=== PATIENT | male | born 1940 | race Caucasian/White ===

== ENCOUNTER → 2016-11-23 | Outpatient (CLI) | payer MEDICARE, MEDICAID ==
[2016-11-23 09:53] LABS: MEAN CORPUSCULAR HEMOGLOBIN 31.8 pg (27.0-33.0); MEAN CORPUSCULAR HGB CONC 36.1 g/dl (32.0-36.5); RED CELL DISTRIBUTION WIDTH 18.1 % (11.5-14.5); WHITE BLOOD COUNT 7.4 K/mm3 (4.0-10.0)
[2016-11-23 10:24] LABS: ALBUMIN 4.1 GM/DL (3.2-5.2); ALBUMIN/GLOBULIN RATIO 1.86 (1.00-1.93); BILIRUBIN,TOTAL 2.3 MG/DL (0.2-1.0); CALCIUM LEVEL 8.8 MG/DL (8.8-10.2); CREATININE FOR GFR 1.3 MG/DL (0.70-1.30); GLOMERULAR FILTRATION RATE 57.1 (>42); POTASSIUM SERUM 4.1 MEQ/L (3.5-5.1); TOTAL PROTEIN 6.3 GM/DL (6.4-8.2)
== END ==
LOC: M LAB 09:10
PROVIDERS: ATTEND Emergency Medicine
DX: E11.9 Type 2 diabetes mellitus without complications (principal)

== ENCOUNTER → 2017-09-25 | Outpatient (CLI) | payer MEDICARE, MEDICAID ==
[2017-09-25 08:25] LABS: BASO % 0.6 % (0.0-1.0); EOS # 0.5 10^3/uL (0.0-0.50); EOS % 7.4 % (0.0-3.0); HEMATOCRIT 35.1 % (42.0-52.0); HEMOGLOBIN 11.8 g/dl (13.5-17.5); IMMATURE GRANULOCYTE % 0.7 % (0-3.0); LYMPH # 1.4 10^3/uL (1.5-4.5); LYMPH % 20.6 % (24.0-44.0); MEAN CORPUSCULAR HEMOGLOBIN 30.5 pg (27.0-33.0); MEAN CORPUSCULAR HGB CONC 33.6 g/dl (32.0-36.5); MEAN CORPUSCULAR VOLUME 90.7 fl (80.0-96.0); MONO # 0.5 10^3/uL (0.0-0.8); MONO % 6.9 % (0.0-5.0); NEUTROPHILS # 4.5 10^3/uL (1.8-7.7); NEUTROPHILS % 63.8 % (36.0-66.0); PLATELET COUNT, AUTOMATED 101 10^3/uL (150-450); RED BLOOD COUNT 3.87 10^6/uL (4.30-6.10); RED CELL DISTRIBUTION WIDTH 16.6 % (11.5-14.5)
[2017-09-25 08:53] LABS: ALBUMIN 4.1 GM/DL (3.2-5.2); ALBUMIN/GLOBULIN RATIO 1.86 (1.00-1.93); ALKALINE PHOSPHATASE 49 U/L (45-117); ALT/SGPT 31 U/L (12-78); ANION GAP 6 MEQ/L (8-16); AST/SGOT 24 U/L (7-37); BILIRUBIN,TOTAL 2.4 MG/DL (0.2-1.0); BLOOD UREA NITROGEN 21 MG/DL (7-18); CALCIUM LEVEL 8.9 MG/DL (8.8-10.2); CARBON DIOXIDE LEVEL 29 MEQ/L (21-32); CHLORIDE LEVEL 108 MEQ/L (98-107); CHOLESTEROL LEVEL 109 MG/DL (<200); CHOLESTEROL RISK RATIO 3.516 (<5); CREATININE FOR GFR 1.27 MG/DL (0.70-1.30); GLOMERULAR FILTRATION RATE 58.7 (>42); GLUCOSE, FASTING 188 MG/DL (70-100); HDL CHOLESTEROL 31 MG/DL (>40); LDL CHOLESTEROL 39.6 MG/DL (<100); NON-HDL-C 78 MG/DL; POTASSIUM SERUM 4.3 MEQ/L (3.5-5.1); SODIUM LEVEL 143 MEQ/L (136-145); TOTAL PROTEIN 6.3 GM/DL (6.4-8.2); TRIGLYCERIDES LEVEL 192 MG/DL (<150)
[2017-09-25 09:03] LABS: MAU/CREAT RATIO 58.3 MCG/MG (0.0-30.0)
[2017-09-25 09:10] LABS: ESTIMATED AVERAGE GLUCOSE 62 MG/DL (60-110); HEMOGLOBIN A1c 3.8 %
== END ==
LOC: M LAB 07:41
DX: E11.9 Type 2 diabetes mellitus without complications (principal)
CPT/HCPCS: 80053

== ENCOUNTER → 2018-09-12 | Outpatient (CLI) | payer MEDICARE, MEDICAID ==
[2018-09-12 10:42] LABS: BASO # 0.1 10^3/uL (0.0-0.2); BASO % 0.8 % (0.0-1.0); EOS # 0.2 10^3/uL (0.0-0.50); EOS % 1.9 % (0.0-3.0); HEMATOCRIT 33.7 % (42.0-52.0); HEMOGLOBIN 11.6 g/dl (13.5-17.5); LYMPH # 1.4 10^3/uL (1.5-4.5); LYMPH % 13.8 % (24.0-44.0); MEAN CORPUSCULAR HEMOGLOBIN 30.2 pg (27.0-33.0); MEAN CORPUSCULAR HGB CONC 34.4 g/dl (32.0-36.5); MEAN CORPUSCULAR VOLUME 87.8 fl (80.0-96.0); MONO # 0.5 10^3/uL (0.0-0.8); MONO % 5.1 % (0.0-5.0); NEUTROPHILS % 76.9 % (36.0-66.0); PLATELET COUNT, AUTOMATED 139 10^3/uL (150-450); RED BLOOD COUNT 3.84 10^6/uL (4.30-6.10); WHITE BLOOD COUNT 10.3 10^3/uL (4.0-10.0)
[2018-09-12 10:58] LABS: HEMOGLOBIN A1c 6.1 %
[2018-09-12 11:21] LABS: ALBUMIN 4.5 GM/DL (3.2-5.2); BILIRUBIN,TOTAL 3.5 MG/DL (0.2-1.0); CALCIUM LEVEL 8.9 MG/DL (8.8-10.2); CHOLESTEROL RISK RATIO 2.605 (<5); CREATININE FOR GFR 1.32 MG/DL (0.70-1.30); FREE T4 1.13 NG/DL (0.76-1.46); POTASSIUM SERUM 4.2 MEQ/L (3.5-5.1); PROSTATIC SPECIFIC AG MONITOR 0.27 NG/ML (< 4.00); THYROID STIMULATING HORMONE 1.25 uIU/ML (0.358-3.740); TOTAL PROTEIN 6.1 GM/DL (6.4-8.2)
[2018-09-12 11:22] LABS: TOTAL 25(OH) VITAMIN D 46.2 NG/ML (30.0-100.0)
== END ==
LOC: M LAB 09:53
PROVIDERS: ATTEND Physician Assistant Medical
DX: R53.83 Other fatigue (principal); I10 Essential (primary) hypertension; E78.2 Mixed hyperlipidemia; E55.9 Vitamin D deficiency, unspecified; E11.9 Type 2 diabetes mellitus without complications

== ENCOUNTER 2018-10-11 09:03 | Emergency (ER) | payer MEDICARE, MEDICAID ==
[~2018-10-11] VITALS: Ht 170.2 cm; Wt 69.1 kg
[2018-10-11 09:24] VITALS: BP 189/79
[2018-10-11] MEDS ORDERED: [UNRECOGNIZED DRUG - CODE] PO (09:46)
[2018-10-11] MEDS ORDERED: GLIM1TAB PO (09:46)
[2018-10-11] MEDS ORDERED: OMEP-218 PO (09:46)
[2018-10-11] MEDS ORDERED: MUCI600T31 PO (09:49)
[2018-10-11] MEDS ORDERED: AUGM875T28 PO (09:49)
[2018-10-11] MEDS ORDERED: AUGMENTIN 875 MG TAB PO ONE (10:00)
== END 2018-10-11 10:03 | disposition home or self-care (01) ==
LOC: M ED 09:03
DX: J01.90 Acute sinusitis, unspecified (principal); H57.13 Ocular pain, bilateral; Z79.899 Other long term (current) drug therapy; Z79.82 Long term (current) use of aspirin

== ENCOUNTER 2018-10-15 12:58 | Inpatient (IN) | payer MEDICARE, MEDICAID ==
[~2018-10-15] VITALS: Ht 170.2 cm; Wt 69.1 kg
[~2018-10-15 12:58] MED LIST: AUGM875T28 PO; GLIM1TAB PO; MUCI600T31 PO; OMEP-218 PO; [UNRECOGNIZED DRUG - CODE] PO
[2018-10-15 14:57] LABS: HEMATOCRIT 32.9 % (42.0-52.0); HEMOGLOBIN 11.1 g/dl (13.5-17.5); MEAN CORPUSCULAR HEMOGLOBIN 29.2 pg (27.0-33.0); MEAN CORPUSCULAR HGB CONC 33.7 g/dl (32.0-36.5); MEAN CORPUSCULAR VOLUME 86.6 fl (80.0-96.0); PLATELET COUNT, AUTOMATED 220 10^3/uL (150-450); WHITE BLOOD COUNT 16.1 10^3/uL (4.0-10.0)
[2018-10-15 15:08] LABS: AMPHETAMINES LEVEL URINE NEGATIVE (NEGATIVE); BARBITURATES URINE NEGATIVE (NEGATIVE); BENZODIAZEPINES URINE NEGATIVE (NEGATIVE); CANNABINOIDS URINE NEGATIVE (NEGATIVE); COCAINE METABOLITE URINE NEGATIVE (NEGATIVE); METHADONE URINE NEGATIVE (NEGATIVE); OPIATES URINE NEGATIVE (NEGATIVE); PHENCYCLIDINE URINE NEGATIVE (NEGATIVE)
[2018-10-15 15:37] LABS: ACETAMINOPHEN LEVEL < 2.0 UG/ML (10.0-30.0); ALBUMIN 3.8 GM/DL (3.2-5.2); ALT/SGPT 47 U/L (12-78); BILIRUBIN,DIRECT 0.7 MG/DL (0.0-0.2); BILIRUBIN,TOTAL 2.4 MG/DL (0.2-1.0); BLOOD UREA NITROGEN 30 MG/DL (7-18); CALCIUM LEVEL 8.6 MG/DL (8.8-10.2); CARBON DIOXIDE LEVEL 28 MEQ/L (21-32); CHLORIDE LEVEL 98 MEQ/L (98-107); CREATININE FOR GFR 1.16 MG/DL (0.70-1.30); ETHYL ALCOHOL (ETHANOL) < 0.003 % (0.000-0.010); GLOMERULAR FILTRATION RATE > 60.0 (>42); GLUCOSE, FASTING 436 MG/DL (70-100); POTASSIUM SERUM 4.2 MEQ/L (3.5-5.1); SALICYLATE LEVEL < 1.7 MG/DL (5.0-30.0); SODIUM LEVEL 134 MEQ/L (136-145); THYROID STIMULATING HORMONE 0.961 uIU/ML (0.358-3.740); TOTAL PROTEIN 6.7 GM/DL (6.4-8.2)
[2018-10-15] MEDS ORDERED: NS 1,000 ML IV ONE ×2 (16:00→18:45)
[2018-10-15] MEDS ORDERED: HumuLIN R (REGULAR) INSULIN (NovoLIN R) **100U/ML** PER UNIT IV ONE (17:15)
[2018-10-15 18:19] LABS: HEMOGLOBIN A1c 7.2 %
--- NOTE | 2018-10-15 20:12 | ECGEPIP ---
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
--- NOTE | 2018-10-15 20:21 | REP ---
PORTABLE CHEST: AP portable view of the chest is performed. COMPARISON: 06/17/2012 There is mild linear fibroatelectatic change in the right lung base. No acute infiltrate is seen. Heart is normal in size and there is mild calcification of the thoracic aorta. The mediastinal silhouette is unremarkable. IMPRESSION: Mild fibroatelectatic change right lung base without evidence of acute infiltrate. Electronically Signed by Godfrey Rice MD 10/20/2018 01:38 P
[2018-10-15] MEDS ORDERED: HumuLIN R (REGULAR) INSULIN (NovoLIN R) **100U/ML** PER UNIT SC ONE (20:30)
[2018-10-16] MEDS ORDERED: GLIMEPIRIDE 1 MG TABLET PO SCH (07:30)
[2018-10-16] MEDS ORDERED: AUGMENTIN 875 MG TAB PO SCH (09:00)
[2018-10-16] MEDS ORDERED: MOM 30ML SUSPENSION UDC PO PRN ×2 (14:15→15:45)
[2018-10-16] MEDS ORDERED: ACETAMINOPHEN TAB 650MG DOSE (2X325MG) PO PRN ×2 (14:15→15:45)
[2018-10-16] MEDS ORDERED: MAALOX 30 ML SUSP *UDC PO PRN ×2 (14:15→15:45)
[2018-10-16] MEDS ORDERED: traZODone 50 MG TAB PO PRN ×2 (14:15→15:45)
[2018-10-16] MEDS ORDERED: AMOX875T2 PO (14:31)
[2018-10-16] MEDS ORDERED: MUCI600T31 PO (14:31)
[2018-10-16 15:44] VITALS: BP 138/67
[2018-10-16 17:26] LABS: HEMATOCRIT 34.1 % (42.0-52.0); HEMOGLOBIN 11.3 g/dl (13.5-17.5); MEAN CORPUSCULAR HGB CONC 33.1 g/dl (32.0-36.5); MEAN CORPUSCULAR VOLUME 87.4 fl (80.0-96.0); PLATELET COUNT, AUTOMATED 265 10^3/uL (150-450); WHITE BLOOD COUNT 19.2 10^3/uL (4.0-10.0)
[2018-10-16 17:38] LABS: CALCIUM LEVEL 8.3 MG/DL (8.8-10.2); CREATININE FOR GFR 1.37 MG/DL (0.70-1.30); GLOMERULAR FILTRATION RATE 53.5 (>42); POTASSIUM SERUM 4.7 MEQ/L (3.5-5.1)
[2018-10-16] MEDS ORDERED: GLUCAGON FOR INJ 1 MG VIAL (J1610) SC PRN (19:15)
[2018-10-16] MEDS ORDERED: DEXTROSE 50% 50 ML SYRINGE IV PRN (19:15)
[2018-10-16] MEDS ORDERED: GLUCOSE 4 GM CHEW TABLET PO PRN (19:15)
--- NOTE | 2018-10-16 20:00 | REP ---
HISTORY: Abdominal pain. Accompanying frontal view of the chest is compared to previous exam of 06/17/2012. The frontal view of the chest shows an abnormal patchy opacity in the right lower lobe. The pleural angles are sharp and the heart is not enlarged. The osseous structures are within normal limits. There is no abnormal free subdiaphragmatic air. There is a large amount of contents seen throughout the colon. This obscures the organ silhouettes. Chronic changes seen involving the hips and spine. IMPRESSION: 1. Right lower lobe pneumonia. 2. Large amount of contents seen throughout the colon. Correlate clinically for constipation. Electronically Signed by Lew Powell DO 10/17/2018 04:42 P
[2018-10-16] MEDS ORDERED: HumaLOG INSULIN (NovoLOG) PER UNIT SC SCH (21:00)
[2018-10-16] MEDS ORDERED: DOCUSATE SODIUM 100 MG CAP PO SCH (21:00)
[2018-10-17] MEDS ORDERED: GLIMEPIRIDE 1 MG TABLET PO SCH (07:30)
[2018-10-17] MEDS ORDERED: HumaLOG INSULIN (NovoLOG) PER UNIT SC SCH (07:30)
--- NOTE | 2018-10-17 08:28 | CR.PDOC ---
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 Patient states today, neighbor (Alka) knocked on door, he answered it, went into the kitchen for "something" and suddenly lost vision. States he became distraught at the idea of never seeing again, groped around kitchen for a knife and attempted to stab himself in abdomen 3 times. He states "the knife just kept bouncing off my skin and wouldn't go in - then I thought angels were pulling my hands away and taking away knife - but later vision coming back and I saw it was Alka". He states his brother Yanick came by and told him he loved him and didn't want him to . Patient was brought to ED and found to have elevated WBC and blood sugars on 10/15/18. He was treated with insulin, IVF. He was seen October 11 for GARZON and sinusitis and placed on augmentin. He states over past week he has been dizzy and fell a few times hitting right elbow and shins but no LOC. ALLERGIES: Please see below. HOME MEDICATIONS: Please see below. PAST MEDICAL HISTORY: mild mental retardation CKD III Diabetes on oral medication GERD Prostate Cancer Depression/anxiety Deaf PAST SURGICAL HISTORY: Cholecystectomy Scar to right side of head - patient does not know of any surgery FAMILY HISTORY: patient doesn't know SOCIAL HISTORY: Lives alone, no tobacco, no EtOH; uses walker REVIEW OF SYSTEMS: 10 systems reviewed and negative except as listed below or in HPI: Dizziness, GARZON, no fever, no N, no V; fecal incontinence (constipation per patient), deaf, vision changes (lost vision, and now blurry), no CP, no dysuria or bladder incontinence; recent falls, myalgias/arthralgia at times PHYSICAL EXAMINATION: VITAL SIGNS: Please see below. GENERAL APPEARANCE: pleasant, NAD, AAOx3 HEENT: Deaf, RAYMOND/EOMI; oral mucosa moist, no JVD, no thyromegally, no bruit, no post nasal drip; Decreased peripheral vision left lateral eye, no nystagmus RESPIRATORY: LCTA no W/R/R, no CVA tenderness, no scoliosis CARDIOVASCULAR: HRRR no murmur ABDOMEN: soft, NT, LLQ mass; RUQ scar consistent with history EXTREMITIES: no edema, onchymycotic toe nails; DP Pulses intact NEUROLOGICAL: vision loss left peripheral, upper and lower motor/sensory strength intact PSYCHIATRIC: Defer to psych note SKIN: no rash, abrasion to right elbow and bilateral shins, no cellulitis LABORATORY DATA: Please see below. ASSESSMENT/PLAN: 1. vision changes - unclear if associated with DM, underlying vasculitis or other etiology; needs further evaluation including CT Head, carotids, etc 2. DM -poor control; on oral agents. start SSI , check HgA1c 3. CKD stage III - stable 4. Leukocytosis - worsening compared to 10/15/18. unclear etiology - doubt sinusitis. on augmentin. has fecal incontinence and if diarrhea stool with constipation, check for CDIF. blood cultures ordered 5. LLQ abdomen mass - suspect stool, but with history of prostate cancer (unknown treatment), will need further evaluation Discussed case with Dr Barroso and at this time, patient needs inpatient evaluation on medical floor in hospital. Will transfer to hospital, 1:1 sitter and further evalute problems above CODE STATUS: FULL DVT PROPHYLAXIS: lovenox DSS CORSET MAKER: Meenaharsha Montaño [phone] Vital Signs/I&O Vital Signs Date Time Temp Pulse Resp B/P (MAP) Pulse Ox O2 Delivery O2 Flow Rate FiO2 10/16/18 15:44 98.8 84 20 138/67 (90) 100 Room Air Laboratory Data Labs 24H Laboratory Tests 2 10/15/18 17:09: Urine Color YELLOW, Urine Appearance CLEAR, Urine pH 7.0, Urine Specific Drain 1.020, Urine Protein NEGATIVE, Urine Glucose (UA) 3+H, Urine Ketones NEGATIVE, Urine Blood NEGATIVE, Urine Nitrite NEGATIVE, Urine Bilirubin NEGATIVE, Urine Urobilinogen 0.2, Urine Leukocyte Esterase NEGATIVE, Urine WBC (Auto) 0, Urine RBC (Auto) 0, Urine Hyaline Casts (Auto) 0, Urine Bacteria (Auto) NEGATIVE, Urine Squamous Epithelial Cells 0, Urine Sperm (Auto) 10/15/18 17:39: Bedside Glucose (Misc Panel) 530*H 10/15/18 18:13: Bedside Glucose (Misc Panel) 390H 10/15/18 19:07: Bedside Glucose (Misc Panel) 487H 10/15/18 20:15: Bedside Glucose (Misc Panel) 536*H 10/15/18 21:35: Bedside Glucose (Misc Panel) 374H 10/15/18 22:31: Bedside Glucose (Misc Panel) 259H 10/16/18 03:13: Bedside Glucose (Misc Panel) 160H 10/16/18 06:02: Bedside Glucose (Misc Panel) 241H CBC/BMP Item Value Date Time White Blood Count 19.2 10^3/uL H 10/16/18 1701 White Blood Count 16.1 10^3/uL H 10/15/18 1438 Hemoglobin 11.3 g/dl L 10/16/18 1701 Hemoglobin 11.1 g/dl L 10/15/18 1438 Red Cell Distribution Width 20.1 % H 10/16/18 1701 Platelet Count 265 10^3/uL 10/16/18 1701 Platelet Count 220 10^3/uL 10/15/18 1438 Red Cell Distribution Width 20.1 % H 10/15/18 1438 Sodium Level 136 MEQ/L 10/16/18 1701 Sodium Level 134 MEQ/L L 10/15/18 1438 Potassium Level 4.7 MEQ/L 10/16/18 1701 Potassium Level 4.2 MEQ/L 10/15/18 1438 Blood Urea Nitrogen 27 MG/DL H 10/16/18 1701 Creatinine 1.37 MG/DL H 10/16/18 1701 Blood Urea Nitrogen 30 MG/DL H 10/15/18 1438 Creatinine 1.16 MG/DL 10/15/18 1438 Fasting Glucose 363 MG/DL H 10/16/18 1701 Fasting Glucose 436 MG/DL *H 10/15/18 1438 Estimated Mean Plasma Glucose 160 MG/DL H 10/15/18 1438 Calcium Level 8.6 MG/DL L 10/15/18 1438 Calcium Level 8.3 MG/DL L 10/16/18 1701 Total Bilirubin 2.4 MG/DL H 10/15/18 1438 Direct Bilirubin 0.7 MG/DL H 10/15/18 1438 Aspartate Amino Transf (AST/SGOT) 22 U/L 10/15/18 1438 Alanine Aminotransferase (ALT/SGPT) 47 U/L 10/15/18 1438 Albumin 3.8 GM/DL 10/15/18 1438 Thyroid Stimulating Hormone (TSH) 0.961 uIU/ML 10/15/18 1438 Hemoglobin A1c 7.2 % 10/15/18 1438 Allergies Coded Allergies: No Known Allergies (Unverified , 10/11/18) Home Medications Scheduled Amoxicillin/Potassium Clav (Amox-Clav 875-125 mg Tablet) 1 Each Tablet, 1 TAB PO BID, (Reported) FILLED 10/11/18 FOR 10 DAYS Aspirin (Aspirin EC) 81 Mg Tablet.dr, 81 MG PO DAILY, (Reported) Glimepiride (Glimepiride) 1 Mg Tablet, 1 MG PO DAILY, (Reported) Omeprazole (Omeprazole) 20 Mg Capsule.dr, 20 MG PO DAILY, (Reported) Scheduled PRN Guaifenesin (Mucinex) 600 Mg Tab.er.12h, 600 MG PO BID PRN for COUGH, (Reported) MITCHELL ARSHAD DO Oct 16, 2018 16:03
--- NOTE | 2018-10-17 10:06 | REP ---
CT Head without contrast HISTORY: Headache COMPARISON: 11/28/2015 The examination is available for review 09:45 a.m. 10/17/2018 Areas of decreased attenuation are present in the periventricular white matter. This represents small-vessel ischemic disease. There is no intraparenchymal hemorrhage, acute infarct or mass. The ventricular system and cortical sulci are dilated consistent with mild volume loss. A 6 mm chronic subdural fluid collection is present over the right cerebral hemisphere. A 5 mm chronic subdural fluid collection is present over the left cerebral hemisphere. There is no midline shift. There is no fracture. The visualized sinuses are clear. IMPRESSION: 1. Small vessel ischemic disease. 2. Mild volume loss. 3. There are small chronic subdural fluid collections measuring 6 and 5 mm over the right and left cerebral convexities respectively. There is no midline shift. Results were discussed with Dr. Aguilera at the 10:00 a.m. 10/17/2018 Electronically Signed by Omar Cam MD 10/17/2018 09:58 A
--- NOTE | 2018-11-11 14:11 | MHDS ---
DATE OF ADMISSION: 10/16/2018 DATE OF DISCHARGE: 10/16/2018 HISTORY OF PRESENT ILLNESS: The patient was admitted to the psychiatric unit on 10/16/2018 at 2:00 p.m. in the afternoon. I never saw the patient, however the patient developed medical complications once he was in the unit and so he had a consult done and the provider contracting consultant felt that the patient needed to be immediately transferred to the medical floor and he was discharged from the unit at 1843 hours. In reviewing the patient's emergency room information, it states that he was brought in by the police following the report of the patient having written a suicidal note and that the patient had stabbed himself in the stomach and in the neck. The patient indicated that he has difficulty seeing and walking and swallowing and he does not want to live anymore. In the emergency room, he was denying any suicidal or homicidal ideations, and there were some will in the abdomen and neck where the patient said he poked himself with a knife. He told them that he tried to kill himself, but it did not work. He indicated that he had medical problems due to his diabetes, which was causing problems with his vision. He also indicated he was struggling with pain due to neuropathy and has difficulty walking. So, the patient was therefore admitted, but transferred soon after he was admitted to the psychiatric unit. He was seen on consultation by Dr. Rhea Aguilera and the reason for transfer was that he was found to have leukocytosis of unclear etiology and a left lower quadrant abdominal mass that they felt needed further evaluation. MENTAL STATUS EXAMINATION: Not done because the patient was never seen. DISCHARGE DIAGNOSIS: Rule out unspecified depressive disorder. Leukocytosis. Left lower quadrant abdominal mass per Dr. Aguilera. PLAN: The patient was transferred to the medical service and once the patient is felt to be stable he can be reevaluated to see if he needed to come back to the inpatient mental health unit.
== END 2018-10-16 22:49 | disposition short-term general hospital (02) | DRG 881 ==
LOC: M ED 12:58 → M ED INP 10-16 14:21 → M PSY 10-16 16:15
PROVIDERS: ADMIT Psychiatry & Neurology Psychiatry; ATTEND Psychiatry & Neurology Psychiatry
DX: F32.9 Major depressive disorder, single episode, unspecified (principal); J18.9 Pneumonia, unspecified organism; D72.829 Elevated white blood cell count, unspecified; R19.04 Left lower quadrant abdominal swelling, mass and lump; I12.9 Hypertensive chronic kidney disease with stage 1 through stage 4 chronic kidney disease, or unspecified chronic kidney disease; N18.3 Chronic kidney disease, stage 3 (moderate); E11.22 Type 2 diabetes mellitus with diabetic chronic kidney disease; F70 Mild intellectual disabilities; K59.00 Constipation, unspecified; K21.9 Gastro-esophageal reflux disease without esophagitis; F43.23 Adjustment disorder with mixed anxiety and depressed mood; F41.9 Anxiety disorder, unspecified; H91.93 Unspecified hearing loss, bilateral; E11.65 Type 2 diabetes mellitus with hyperglycemia; R15.9 Full incontinence of feces; Z85.46 Personal history of malignant neoplasm of prostate; Z79.82 Long term (current) use of aspirin; Z79.899 Other long term (current) drug therapy; Z79.84 Long term (current) use of oral hypoglycemic drugs; Z91.5 Personal history of self-harm

== ENCOUNTER 2018-10-16 19:49 | Inpatient (IN) | payer MEDICARE, MEDICAID ==
[~2018-10-16 19:49] MED LIST changes: +AMOX875T2 PO
[2018-10-16] MEDS ORDERED: DEXTROSE 50% 50 ML SYRINGE IV PRN (21:00)
[2018-10-16] MEDS ORDERED: GLUCAGON FOR INJ 1 MG VIAL (J1610) SC PRN (21:00)
[2018-10-16] MEDS ORDERED: GLUCOSE 4 GM CHEW TABLET PO PRN (21:00)
[2018-10-16] MEDS ORDERED: ACETAMINOPHEN TAB 650MG DOSE (2X325MG) PO PRN (21:15)
[2018-10-16] MEDS ORDERED: MOM 30ML SUSPENSION UDC PO PRN (21:15)
[2018-10-16] MEDS ORDERED: traZODone 50 MG TAB PO PRN (21:15)
[2018-10-16 22:55] VITALS: BP 119/69
[2018-10-17] MEDS: HumaLOG INSULIN (NovoLOG) PER UNIT SC SCH ×5 (00:48→20:48)
--- NOTE | 2018-10-17 01:03 | HPEPDOC ---
[facility] Medical History & Physical Date of Admission Oct 17, 2018 Date of Service: Oct 17, 2018 History and Physical CHIEF COMPLAINT: Suicidal ideation HISTORY OF PRESENT ILLNESS: Patient is a 78-year-old male with past medical history of DM with unknown other problems including reportedly brought into the ER and admitted to [facility] for suicidal attempt. Patient was transferred to medical floor after found to have elevated BS and leukocytosis. History cannot be obtained fully as patient is either not able to understand or cannot hear. He answer one or two questions but otherwise cannot understand the majority of questions asked at this time. Per aid at bedside, patient wakes up from his dream and gets anxious saying he can't see, but short lived and he is back to normal. Patient reportedly tried to stabbed himself at home today and was transferred to the ER for that reason. Currently unable to obtain a ROS or other history. PAST MEDICAL HISTORY: Refer to HPI PAST SURGICAL HISTORY: Unknown SOCIAL HISTORY: Denies tobacco, alcohol or illicit drug use. FAMILY HISTORY: Unknown ALLERGIES: Please see below. REVIEW OF SYSTEMS: Unable to obtain HOME MEDICATIONS: Please see below. PHYSICAL EXAMINATION: General: No acute distress, Alert. Difficult to comprehend speech, hard of hearing. Eyes: Normal sclera, EOMI, RAYMOND HENT: Atraumatic, neck supple, dry mucous membranes Cardiovascular: Normal rate, normal rhythm. Pulmonary: Clear to auscultation b/l, no wheezing GI: Soft, nontender, nondistended Skin: Warm and dry Neuro: CN grossly intact. No focal deficits. Strengths equal b/l. Psych: oriented x 3 LABORATORY DATA: See below. MICROBIOLOGY: Please see below. CXR - IMPRESSION: Mild fibroatelectatic change right lung base without evidence of acute infiltrate. Abdominal XR- IMPRESSION: 1. Right lower lobe pneumonia. 2. Large amount of contents seen throughout the colon. Correlate clinically for constipation. ASSESSMENT AND PLAN: 1. RLL Pneumonia - Unknown etiology. Has been afebrile. - blood cultures drawn in [facility] prior to transfer. f/u findings. - CXR/Abdominal XR suggestive of RLL pneumonia. - Start on Rocephin and Azithromycin. 2. DM - States that he does not use injection. - Will hold home Glimepiride and start on ISS with low dose basal insulin. - Accuchecks, diabetic diet. 3. AMS? - Unsure if mental status has changed from baseline. - Need to verify with family in AM. Home Medications Scheduled Amoxicillin/Potassium Clav (Amox-Clav 875-125 mg Tablet) 1 Each Tablet, 1 TAB PO BID FILLED 10/11/18 FOR 10 DAYS Aspirin (Aspirin EC) 81 Mg Tablet.dr, 81 MG PO DAILY Glimepiride (Glimepiride) 1 Mg Tablet, 1 MG PO DAILY Omeprazole (Omeprazole) 20 Mg Capsule.dr, 20 MG PO DAILY Scheduled PRN Guaifenesin (Mucinex) 600 Mg Tab.er.12h, 600 MG PO BID PRN for COUGH Allergies Coded Allergies: No Known Allergies (Unverified , 10/11/18) A-FIB/CHADSVASC A-FIB History Current/History of A-Fib/PAF?: No YUMIKO CARTER MD Oct 17, 2018 01:03
[2018-10-17 02:00] VITALS: BP 126/60
[2018-10-17] MEDS: AZITHROMYCIN INJ 500 MG, VIAL MATE ADAPTER 1 EACH in D5W 250 ML IV SCH (05:06)
[2018-10-17] MEDS: HEPARIN SOD (PORCINE) 5000 UNITS/ML VIAL SC SCH ×3 (05:08→20:49)
[2018-10-17] MEDS: LEVEMIR (INSULIN DETEMIR) 1 UNITS/0.01ML SC SCH ×2 (05:35→20:49)
[2018-10-17 06:00] VITALS: BP 153/70
[2018-10-17] MEDS: cefTRIAXone SOD 1 GM in D5W MINI-BAG PLUS 50 ML IV SCH (06:13)
[2018-10-17] MEDS ORDERED: NS 1,000 ML IV SCH (09:45)
[2018-10-17] MEDS ORDERED: guaiFENesin ER 600 MG TAB PO PRN (09:45)
[2018-10-17 10:00] VITALS: BP 165/69
[2018-10-17] MEDS: DOCUSATE SODIUM 100 MG CAP PO SCH ×2 (10:43→20:48)
[2018-10-17] MEDS: ASPIRIN 81 MG ENTERIC TAB PO SCH (10:43)
[2018-10-17] MEDS: PANTOPRAZOLE 20 MG TAB PO SCH (10:43)
[2018-10-17] MEDS: MIRALAX *UNIT DOSE* 17GM PACKET PO SCH (10:43)
[2018-10-17 12:51] LABS: HEMATOCRIT 30.5 % (42.0-52.0); HEMOGLOBIN 10.1 g/dl (13.5-17.5); MEAN CORPUSCULAR HEMOGLOBIN 28.6 pg (27.0-33.0); MEAN CORPUSCULAR HGB CONC 33.1 g/dl (32.0-36.5); MEAN CORPUSCULAR VOLUME 86.4 fl (80.0-96.0); PLATELET COUNT, AUTOMATED 200 10^3/uL (150-450); RED BLOOD COUNT 3.53 10^6/uL (4.30-6.10); WHITE BLOOD COUNT 11.6 10^3/uL (4.0-10.0)
[2018-10-17 13:15] LABS: BLOOD UREA NITROGEN 21 MG/DL (7-18); CARBON DIOXIDE LEVEL 28 MEQ/L (21-32); CHLORIDE LEVEL 105 MEQ/L (98-107); CREATININE FOR GFR 0.89 MG/DL (0.70-1.30); GLOMERULAR FILTRATION RATE > 60.0 (>42); GLUCOSE, FASTING 182 MG/DL (70-100); POTASSIUM SERUM 3.9 MEQ/L (3.5-5.1); SODIUM LEVEL 140 MEQ/L (136-145)
--- NOTE | 2018-10-17 13:56 | REP ---
REASON: Loss of vision. PRIORS: None. There is echogenic material seen along the carotid arterial warner, none of which cast an acoustic shadow that would be considered consistent with calcific deposition. RIGHT LEFT CCA systolic 90.1 cm/s 106.0 cm/s CCA diastolic 13.0 cm/s 19.1 cm/s ICA systolic 96.3 cm/s 108.0 cm/s ICA diastolic 27.3 cm/s 24.3 cm/s ICA/CCA ratio 1.07 1.02 Analysis of the spectral waveform shows no significant spectral broadening. There is antegrade flow seen in both vertebral arteries. IMPRESSION: There is bilateral internal carotid artery intimal thickening. According to the NASCET Consensus Criteria, there is less than 50% stenosis of the internal carotid artery bilaterally. Electronically Signed by Lew Powell DO 10/17/2018 04:43 P
[2018-10-17 14:00] VITALS: BP 133/65
--- NOTE | 2018-10-17 14:53 | IPNPDOC ---
Text Note Date of Service The patient was seen on 10/17/18. NOTE S: patient admitted from pyschiatry department because of leukocytosis, change in vision and frequent falls. See H&P and consult note 10/16/18 He states feels fine. has increasing moist sputum production/cough, no CP. Patient is deaf. Still with decreased vision Studies from last night and today reviewed -showing: CT HEAD: verbal report from radiology - 2 small chronic subdural hematoma (present on admission and probably greater than 1 month of age) CBC with improved WBC with IV antibiotics (failed outpatient augmentin) - currently on IV rocephin/azith KUB with increased fecal burden Pending studies: cardiac echo, carotid US O: Vitals as below HRRR no murmur LCTA with new course scattered rhonchi Ext: no edema LABORATORY DATA: Please see below. ASSESSMENT/PLAN: 1. vision changes - unclear if associated with DM, doubt vasculitis as normal ESR; unrelated to chronic subdural hematoma per radiology; await carotid US and consider MRI/MRA , optho eval.as outpatient 2. DM -poor control; continue levemir and SSI . HgA1c 7.2 3. CKD stage III - stable 4. Leukocytosis - improved with antibiotic and due to pneumonia 5. Pneumonia - community acquired - probable bacterial - continue with IV rocephin and azith 6. LLQ abdomen mass -due to constipation. - bowel regimen with miralax and colace 7. Chronic subdural hematoma from multiple falls prior to admission - PT/OT consult 8. Suicide attempt - impulsive behavior. when medically cleared will have psych evaluate. VS,Fishbone, I+O VS, Fishbone, I+O Laboratory Tests 10/17/18 12:07 Red Blood Count 3.53 L, Mean Corpuscular Volume 86.4, Mean Corpuscular Hemoglobin 28.6, Mean Corpuscular Hemoglobin Concent 33.1, Red Cell Distribution Width 19.6 H, Calcium Level 8.0 L Vital Signs Date Time Temp Pulse Resp B/P (MAP) Pulse Ox O2 Delivery O2 Flow Rate FiO2 10/17/18 14:00 97.5 75 19 133/65 (87) 97 I&O- Last 24 Hours up to 6 AM 10/17/18 06:00 Intake Total 750 ml Balance 750 ml MITCHELL ARSHAD DO Oct 17, 2018 14:53
[2018-10-17] MEDS: IPRATROPIUM 0.5MG/ALBUTEROL 2.5MG INH SOL UD 3ML (DUONEB)(J7620) NEB SCH ×2 (15:22→23:23)
[2018-10-17] MEDS: guaiFENesin ER 600 MG TAB PO SCH (20:48)
[2018-10-17 22:00] VITALS: BP 167/75
[2018-10-18 02:00] VITALS: BP 144/66
[2018-10-18] MEDS: AZITHROMYCIN INJ 500 MG, VIAL MATE ADAPTER 1 EACH in D5W 250 ML IV SCH (04:05)
[2018-10-18] MEDS: cefTRIAXone SOD 1 GM in D5W MINI-BAG PLUS 50 ML IV SCH (05:50)
[2018-10-18] MEDS: HEPARIN SOD (PORCINE) 5000 UNITS/ML VIAL SC SCH ×3 (05:50→21:25)
[2018-10-18 06:00] VITALS: BP 125/58
[2018-10-18 06:00] LABS: HEMATOCRIT 27.9 % (42.0-52.0); HEMOGLOBIN 9.2 g/dl (13.5-17.5); PLATELET COUNT, AUTOMATED 166 10^3/uL (150-450); RED BLOOD COUNT 3.17 10^6/uL (4.30-6.10); WHITE BLOOD COUNT 8.2 10^3/uL (4.0-10.0)
[2018-10-18 06:28] LABS: ALBUMIN 2.9 GM/DL (3.2-5.2); ALT/SGPT 37 U/L (12-78); BILIRUBIN,TOTAL 1.1 MG/DL (0.2-1.0); BLOOD UREA NITROGEN 16 MG/DL (7-18); CALCIUM LEVEL 8.3 MG/DL (8.8-10.2); CARBON DIOXIDE LEVEL 28 MEQ/L (21-32); CHLORIDE LEVEL 106 MEQ/L (98-107); CREATININE FOR GFR 0.87 MG/DL (0.70-1.30); GLOMERULAR FILTRATION RATE > 60.0 (>42); GLUCOSE, FASTING 179 MG/DL (70-100); POTASSIUM SERUM 3.6 MEQ/L (3.5-5.1); SODIUM LEVEL 139 MEQ/L (136-145); TOTAL PROTEIN 5.1 GM/DL (6.4-8.2)
[2018-10-18] MEDS: IPRATROPIUM 0.5MG/ALBUTEROL 2.5MG INH SOL UD 3ML (DUONEB)(J7620) NEB SCH ×2 (07:42→15:27)
[2018-10-18] MEDS: MIRALAX *UNIT DOSE* 17GM PACKET PO SCH (08:47)
[2018-10-18] MEDS: DOCUSATE SODIUM 100 MG CAP PO SCH ×2 (08:47→21:25)
[2018-10-18] MEDS: guaiFENesin ER 600 MG TAB PO SCH ×2 (08:47→21:26)
[2018-10-18] MEDS: HumaLOG INSULIN (NovoLOG) PER UNIT SC SCH ×4 (08:47→21:26)
[2018-10-18] MEDS: ASPIRIN 81 MG ENTERIC TAB PO SCH (08:47)
[2018-10-18] MEDS: PANTOPRAZOLE 20 MG TAB PO SCH (08:47)
[2018-10-18 10:00] VITALS: BP 148/57
--- NOTE | 2018-10-18 12:08 | IPNPDOC ---
Text Note Date of Service The patient was seen on 10/18/18. NOTE S: patient states still with blurry vision but no loss in visually acuity. st ates everything looks zaidi and cloudy. Denies "black" vision loss or curtain . He states no GARZON, no N, no V, no cough. has been ambulating in room. feels back to normal. He is very worried about going blind O: Vital as below General:pleasant, tearful at time, AAOx3 HEENT: Hard of hearing; visual field peripherally intact with NO DEFICIT. limited opthalmic exam with cataracts left more than right but unable to see fundus. HRRR LCTA Labs improved Carotid US negative for occlusive disease (less then 50% stenosis bilaterally) Echo not performed - no longer needed. order cancelled A/P 1. vision changes - unclear if associated with DM or cataract. CVA and vasculitis ruled out. Will need optho eval as outpatient. 2. DM -poor control; continue levemir and SSI . restart oral agent as o utpatient and d/c SSI. HgA1c 7.2 3. CKD stage III - stable and improving 4. Leukocytosis - resolved and to pneumonia 5. Pneumonia - community acquired - probable bacterial - change IV rocephin and azith to orals (Keflex and azith). 6. LLQ abdomen mass -due to constipation. - bowel regimen with miralax and colace - RESOLVED 7. Chronic subdural hematoma from multiple falls prior to admission - PT/OT consult and clear. 8. Suicide attempt - impulsive behavior. consult psych. patient medically st able and ready for discharge VS,Quin, I+O VS, Quin, I+O Laboratory Tests 10/17/18 12:07 Red Blood Count 3.53 L, Mean Corpuscular Volume 86.4, Mean Corpuscular Hemoglobin 28.6, Mean Corpuscular Hemoglobin Concent 33.1, Red Cell Distribution Width 19.6 H, Calcium Level 8.0 L 10/18/18 05:19 Red Blood Count 3.17 L, Mean Corpuscular Volume 88.0, Mean Corpuscular Hemoglobin 29.0, Mean Corpuscular Hemoglobin Concent 33.0, Red Cell Distribution Width 19.7 H, Calcium Level 8.3 L, Aspartate Amino Transf (AST/SGOT) 14, Alanine Aminotransferase (ALT/SGPT) 37, Alkaline Phosphatase 64, Total Bilirubin 1.1 #H, Total Protein 5.1 #L, Albumin 2.9 #L Vital Signs Date Time Temp Pulse Resp B/P (MAP) Pulse Ox O2 Delivery O2 Flow Rate FiO2 10/18/18 10:00 97.7 100 18 148/57 (87) 100 I&O- Last 24 Hours up to 6 AM 10/18/18 06:00 Intake Total 2925 ml Balance 2925 ml MITCHELL ARSHAD DO Oct 18, 2018 12:08
[2018-10-18 14:00] VITALS: BP 147/59
[2018-10-18] MEDS: CEPHALEXIN 500 MG CAP PO SCH ×2 (14:14→21:25)
[2018-10-18 18:00] VITALS: BP 143/63
--- NOTE | 2018-10-18 21:04 | MHIPNPDOC ---
[facility] Progress Note Progress Note DATE OF SERVICE: 10/18/18 HISTORY: Patient is a 78-year-old male with past medical history of DM with unknown other problems including reportedly brought into the ER and admitted to Psych for suicidal attempt. Patient was transferred to medical floor after found to have elevated BS and leukocytosis. History cannot be obtained fully as patient is either not able to understand or cannot hear. He answer one or two questions but otherwise cannot understand the majority of questions asked at this time. Per aid at bedside, patient wakes up from his dream and gets anxious saying he can't see, but short lived and he is back to normal. Patient reportedly tried to stabbed himself at home today and was transferred to the ER for that reason. Currently unable to obtain a ROS or other history. VITAL SIGNS: See below. NEW TEST RESULTS: See below CURRENT MEDICATIONS: See below. MENTAL STATUS EXAMINATION: Patient is a 78 year old male, who is alert, cooperative, laying in bed, dressed in hospital gown, with hearing difficulties. Speech: spontaneous, a little bit garbled, fluent, normal rate, tone and volume. Language skills are good. Thought processes including: linear, coherent. Thought content: He denies having suicidal. He says he is sad because he can't see very well.. Description of abnormal or psychotic thoughts: The patient is not psychotic, he is not responding to internal stimuli, he has no thought delusions, he is not hallucinating Judgment: fair. Insight: fair. Orientation: x 2 ( not to date and time because he is at the hospital and there's no clocks or calendars). Recent and remote memory: fair. Attention span and concentration: good. Mood: anxious. Affect: congruent with mood, anxious but reactive, full appropriate. DIAGNOSES: 1. Adjustment disorder with anxious/depressed mood ASSESSMENT: The patient is not suicidal, not homicidal and not psychotic at this time. He is going through a difficult time, he is losing his sight and he is very anxious, he fears going blind. This life insurance underwriter explained he is not going to go blind, that if he controls his blood glucose and if he goes to the eye Doctor, everything is going to be fine. At that moment he gave me a big smile and he was very thankful. I believe that he should go to an Running Instructor appointment as soon as possible and his next of kin should be aware that he needs to monitor his blood glucose to control his vision problem. He doesn't need to be transferred to [facility], he doesn't need to be on a sitter now. MANAGEMENT PLAN: As per Dr. Aguilera. he doesn't need to be transferred to Psychiatry, he doesn't need to be on a a sitter. TIME SPENT: 15 minutes. Vital Signs Vital Signs Date Time Temp Pulse Resp B/P (MAP) Pulse Ox O2 Delivery O2 Flow Rate FiO2 10/18/18 18:00 97.3 91 18 143/63 (89) 100 Laboratory Data 24H Labs Laboratory Tests 2 10/18/18 05:19: Nucleated Red Blood Cells % (auto) 0.0, Anion Gap 5L, Glomerular Filtration Rate > 60.0, Blood Urea Nitrogen 16, Creatinine 0.87, Sodium Level 139, Potassium Level 3.6, Chloride Level 106, Carbon Dioxide Level 28, Calcium Level 8.3L, Aspartate Amino Transf (AST/SGOT) 14, Alanine Aminotransferase (ALT/SGPT) 37, Alkaline Phosphatase 64, Total Bilirubin 1.1#H, Total Protein 5.1#L, Albumin 2.9#L, Albumin/Globulin Ratio 1.32 10/18/18 11:54: Bedside Glucose (Misc Panel) 306H 10/18/18 16:33: Bedside Glucose (Misc Panel) 299H 10/18/18 20:23: Bedside Glucose (Misc Panel) 289H CBC/BMP Laboratory Tests 10/18/18 05:19 Red Blood Count 3.17 L, Mean Corpuscular Volume 88.0, Mean Corpuscular Hemoglobi n 29.0, Mean Corpuscular Hemoglobin Concent 33.0, Red Cell Distribution Width 19.7 H, Calcium Level 8.3 L, Aspartate Amino Transf (AST/SGOT) 14, Alanine Aminotransferase (ALT/SGPT) 37, Alkaline Phosphatase 64, Total Bilirubin 1.1 #H, Total Protein 5.1 #L, Albumin 2.9 #L Current Medications Current Medications Acetaminophen (Tylenol Tab) 650 mg Q6HP PRN PO PAIN / FEVER; Start 10/16/18 at 21:15 Albuterol/ Ipratropium (Duoneb (Ipr 0.5mg/Alb 2.5mg)) 3 ml RQ8H NEB Last administered on 10/18/18at 15:27; Start 10/17/18 at 16:00 Aspirin (Ecotrin) 81 mg DAILY PO Last administered on 10/18/18at 08:47; Start 10/17/18 at 09:00 Azithromycin (Zithromax Tab) 250 mg DAILY PO ; Start 10/19/18 at 09:00; Stop 10/21/18 at 11:00 Azithromycin 500 mg/IV Miscellaneous Supplies 1 each/ Dextrose 255 ml @ 255 mls/hr Q24H IV Last administered on 10/18/18at 04:05; Start 10/17/18 at 04:00; Stop 10/18/18 at 10:52; Status DC Ceftriaxone Sodium 1 gm/ Dextrose 50 ml @ 100 mls/hr Q24H IV Last administered on 10/18/18at 05:50; Start 10/17/18 at 06:00; Stop 10/18/18 at 10:52; Status DC Cephalexin Monohydrate (Keflex) 500 mg Q8H PO Last administered on 10/18/18at 14:14; Start 10/18/18 at 14:00; Stop 10/25/18 at 13:59 Dextrose (Dextrose 50%) 25 ml ASDIRECTED PRN IV SEE LABEL COMMENTS; Start 10/16/18 at 21:00 Docusate Sodium (Colace) 100 mg BID PO Last administered on 10/18/18at 08:47; Start 10/17/18 at 09:00 Glucagon (Glucagon) 1 mg ASDIRECTED PRN SC SEE LABEL COMMENTS; Start 10/16/18 at 21:00 Glucose (Glucose) 16 GM ASDIRECTED PRN PO SEE LABEL COMMENTS; Start 10/16/18 at 21:00 Guaifenesin (Mucinex Tab Er) 600 mg BID PRN PO COUGH; Start 10/17/18 at 09:45; Status Future Hold Guaifenesin (Mucinex Tab Er) 1,200 mg BID PO Last administered on 10/18/18at 08:47; Start 10/17/18 at 21:00 Heparin Sodium (Porcine) (Heparin) 5,000 units Q8H SC Last administered on 10/18/18at 14:14; Start 10/17/18 at 06:00 Home Med (Med Rec Complete!) ASDIRECTED XX ; Start 10/16/18 at 23:00; Stop 10/16/18 at 23:01; Status DC Insulin Detemir (Levemir Insulin) 10 units QHS SC Last administered on 10/17/18 20:49; Start 10/17/18 at 02:45 Insulin Human Lispro (HumaLOG INSULIN) SEE PROTOCOL TABLE AC SC Last administered on 10/18/18 17:32; Start 10/17/18 at 07:30 Insulin Human Lispro (HumaLOG INSULIN) SEE PROTOCOL TABLE QHS SC Last administered on 10/17/18 20:48; Start 10/16/18 at 21:00 Magnesium Hydroxide (Milk Of Magnesia) 30 ml DAILYPRN PRN PO CONSTIPATION; Start 10/16/18 at 21:15 Pantoprazole Sodium (Protonix) 20 mg DAILY PO Last administered on 10/18/18 08:47; Start 10/17/18 at 09:00 Polyethylene Glycol (Miralax) 1 pkt DAILY PO Last administered on 10/18/18 08:47; Start 10/17/18 at 09:00 Sodium Chloride 1,000 ml @ 100 mls/hr Q10H IV Last administered on 10/17/18 10:43; Start 10/17/18 at 09:45; Stop 10/17/18 at 19:44; Status DC Trazodone HCl (Desyrel) 50 mg QHSP PRN PO INSOMNIA; Start 10/16/18 at 21:15 Allergies Coded Allergies: No Known Allergies (Unverified , 10/11/18) KENTON GOMEZ MD Oct 18, 2018 21:04
[2018-10-18] MEDS: LEVEMIR (INSULIN DETEMIR) 1 UNITS/0.01ML SC SCH (21:26)
[2018-10-18 22:00] VITALS: BP 145/65
[2018-10-19 02:00] VITALS: BP 141/63
[2018-10-19] MEDS: CEPHALEXIN 500 MG CAP PO SCH ×3 (05:22→22:34)
[2018-10-19] MEDS: HEPARIN SOD (PORCINE) 5000 UNITS/ML VIAL SC SCH ×3 (05:23→22:34)
[2018-10-19 06:00] VITALS: BP 145/65
[2018-10-19] MEDS: HumaLOG INSULIN (NovoLOG) PER UNIT SC SCH ×4 (07:30→20:47)
[2018-10-19] MEDS: IPRATROPIUM 0.5MG/ALBUTEROL 2.5MG INH SOL UD 3ML (DUONEB)(J7620) NEB SCH ×3 (07:50→15:24)
[2018-10-19] MEDS ORDERED: CEPH500C PO (09:00)
[2018-10-19] MEDS ORDERED: PEG1POW PO (09:00)
[2018-10-19] MEDS ORDERED: AZIT-12 PO (09:00)
[2018-10-19] MEDS ORDERED: COLA100C5 PO (09:00)
[2018-10-19] MEDS: MIRALAX *UNIT DOSE* 17GM PACKET PO SCH (09:00)
--- NOTE | 2018-10-19 09:13 | DS.PDOC ---
Discharge Summary General Date of Admission Oct 16, 2018 at 22:52 Date of Discharge 10/19/18 Attending Physician: MITCHELL ARSHAD DO Specialist/Consultants Involve: KENTON GOMEZ MD Discharge Summary PROCEDURES PERFORMED DURING STAY: none ADMITTING DIAGNOSES: 1. vision changes 2. DM 3. CKD stage III 4. Leukocytosis 5. LLQ abdomen mass DISCHARGE DIAGNOSES: 1. vision changes - 2. DM, not on longer term insulin; with hyperglycemia -p 3. CKD stage III - 4. Pneumonia - community acquired - probable bacterial - c 5. constipation. - 6. Chronic subdural hematoma from multiple falls prior to admission - 7. Suicide attempt - impulsive behavior. COMPLICATIONS/CHIEF COMPLAINT: Acute Sinusitis;Hyperglycemia;Si. 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 Patient states today, neighbor (Alka) knocked on door, he answered it, went into the kitchen for "something" and suddenly lost vision. States he became distraught at the idea of never seeing again, groped around kitchen for a knife and attempted to stab himself in abdomen 3 times. He states "the knife just kept bouncing off my skin and wouldn't go in - then I thought angels were pulling my hands away and taking away knife - but later vision coming back and I saw it was Alka". He states his brother Yanick came by and told him he loved him and didn't want him to . Patient was brought to ED and found to have elevated WBC and blood sugars on 10/15/18. He was treated with insulin, IVF. He was seen October 11 for GAROZN and sinusitis and placed on augmentin. He states over past week he has been dizzy and fell a few times hitting right elbow and shins but no LOC. Patient is being transferred from Mental health unit to medical floor HOSPITAL COURSE: patient admitted , placed on rocephin and azithomycin with improvement to leukocytosis. CXR consistent with pneumonia. blood cultures/sputum culture negative. CT head showed chronic subdural hematoma (present prior to admission). His vision did improve with BS control and no longer had peripheral field deficits prior to discharge. There was no signs of CVA or vasculitis (negative ESR). His carotid US showed less than 50% stenosis bilaterally. His LLQ abdomen mass was due to fecal burden, constipation and resolved with Colace/miralax. he will need opthomology evaluation as outpatient as it is unclear if vision loss /change was due to DM or cataract or something else. Patient seen by psychiatry and deemed not a threat to self or others. He is being discharged in stable and improved condition. DISCHARGE MEDICATIONS: Please see below. ALLERGIES: Please see below. PHYSICAL EXAMINATION ON DISCHARGE: VITAL SIGNS: Please see below. General: pleasant, NAD AAOx3 HRRR LCTA Ext: no edema LABORATORY DATA: Please see below. IMAGING: CT HEAD verbal report - chronic subdural hematoma x2 - small and over 1 month old; CXR consistent with RLL pneumonia PROGNOSIS:good ACTIVITY:as tolerated DIET: carb consistent regular DISCHARGE PLAN: d/c home DISCHARGE INSTRUCTIONS: 1. follow up with ophthomology in 2-3 days 2. follow up with PCP in 5-7 days DISCHARGE CONDITION: stable TIME SPENT ON DISCHARGE: 30 minutes. Vital Signs/I&Os Vital Signs Date Time Temp Pulse Resp B/P (MAP) Pulse Ox O2 Delivery O2 Flow Rate FiO2 10/19/18 06:00 97.1 76 16 145/65 (91) 99 I&O- Last 24 Hours up to 6 AM 10/19/18 06:00 Intake Total 1890 ml Output Total 0 ml Balance 1890 ml Laboratory Data Labs 24H Laboratory Tests 2 10/18/18 11:54: Bedside Glucose (Misc Panel) 306H 10/18/18 16:33: Bedside Glucose (Misc Panel) 299H 10/18/18 20:23: Bedside Glucose (Misc Panel) 289H 10/19/18 05:21: Bedside Glucose (Misc Panel) 90 FSBS Laboratory Tests Test 10/18/18 11:54 10/18/18 16:33 10/18/18 20:23 10/19/18 05:21 Range/Units Bedside Glucose (Misc Panel) 306 299 289 90 83-110 MG/DL Discharge Medications Scheduled Aspirin (Aspirin EC) 81 Mg Tablet.dr, 81 MG PO DAILY, (Reported) Azithromycin (Azithromycin) 250 Mg Tablet, 250 MG PO DAILY Cephalexin (Cephalexin) 500 Mg Capsule, 500 MG PO Q8H Docusate Sodium (Colace) 100 Mg Capsule, 100 MG PO BID Glimepiride (Glimepiride) 1 Mg Tablet, 1 MG PO DAILY, (Reported) Omeprazole (Omeprazole) 20 Mg Capsule.dr, 20 MG PO DAILY, (Reported) Polyethylene Glycol 3350 (Polyethylene Glycol 3350) 17 Gm Powd.pack, 1 PKT PO DAILY Scheduled PRN Guaifenesin (Mucinex) 600 Mg Tab.er.12h, 600 MG PO BID PRN for COUGH, (Reported) Allergies Coded Allergies: No Known Allergies (Unverified , 10/11/18) MITCHELL ARSHAD DO Oct 19, 2018 09:13
[2018-10-19] MEDS: AZITHROMYCIN 250 MG TAB PO SCH (09:46)
[2018-10-19] MEDS: DOCUSATE SODIUM 100 MG CAP PO SCH ×2 (09:46→20:46)
[2018-10-19] MEDS: ASPIRIN 81 MG ENTERIC TAB PO SCH (09:46)
[2018-10-19] MEDS: PANTOPRAZOLE 20 MG TAB PO SCH (09:46)
[2018-10-19] MEDS: guaiFENesin ER 600 MG TAB PO SCH ×2 (09:46→20:46)
[2018-10-19 10:00] VITALS: BP 151/61
--- NOTE | 2018-10-19 13:19 | IPNPDOC ---
Text Note Date of Service The patient was seen on 10/19/18. NOTE Patient medically stable for discharge, however, unable to arrange for follow up care, medications, consultants and new PCP. Unable to contact his sister, case operator or neighbor. Discharge cancelled and will have PFS arrange for disposition tomorrow. VS,Fishbone, I+O VS, Fishbone, I+O Vital Signs Date Time Temp Pulse Resp B/P (MAP) Pulse Ox O2 Delivery O2 Flow Rate FiO2 10/19/18 10:00 98.0 96 18 151/61 (91) 100 I&O- Last 24 Hours up to 6 AM 10/19/18 06:00 Intake Total 1890 ml Output Total 0 ml Balance 1890 ml MITCHELL ARSHAD DO Oct 19, 2018 13:19
[2018-10-19 14:00] VITALS: BP 149/61
[2018-10-19 18:00] VITALS: BP 143/63
[2018-10-19] MEDS: LEVEMIR (INSULIN DETEMIR) 1 UNITS/0.01ML SC SCH (20:47)
[2018-10-19 22:00] VITALS: BP 130/60
[2018-10-20 02:00] VITALS: BP 138/63
[2018-10-20] MEDS: HEPARIN SOD (PORCINE) 5000 UNITS/ML VIAL SC SCH (05:47)
[2018-10-20] MEDS: CEPHALEXIN 500 MG CAP PO SCH ×2 (05:47→13:18)
[2018-10-20 06:00] VITALS: BP 144/64
[2018-10-20] MEDS: IPRATROPIUM 0.5MG/ALBUTEROL 2.5MG INH SOL UD 3ML (DUONEB)(J7620) NEB SCH ×2 (07:27)
[2018-10-20] MEDS: HumaLOG INSULIN (NovoLOG) PER UNIT SC SCH ×2 (07:30→13:19)
[2018-10-20 10:00] VITALS: BP 144/65
[2018-10-20] MEDS: MIRALAX *UNIT DOSE* 17GM PACKET PO SCH (10:08)
[2018-10-20] MEDS: PANTOPRAZOLE 20 MG TAB PO SCH (10:08)
[2018-10-20] MEDS: ASPIRIN 81 MG ENTERIC TAB PO SCH (10:08)
[2018-10-20] MEDS: DOCUSATE SODIUM 100 MG CAP PO SCH (10:08)
[2018-10-20] MEDS: guaiFENesin ER 600 MG TAB PO SCH (10:08)
[2018-10-20] MEDS: AZITHROMYCIN 250 MG TAB PO SCH (10:08)
--- NOTE | 2018-10-20 11:30 | DS.PDOC ---
Discharge Summary General Date of Admission Oct 16, 2018 at 22:52 Date of Discharge 10/20/18 Primary Care Physician: Emmanuel Esteves M.D. Attending Physician: MTICHELL ARSHAD DO Discharge Summary PROCEDURES PERFORMED DURING STAY: none ADMITTING DIAGNOSES: 1. vision changes 2. DM 3. CKD stage III 4. Leukocytosis 5. LLQ abdomen mass DISCHARGE DIAGNOSES: 1. vision changes - 2. DM, not on longer term insulin; with hyperglycemia -p 3. CKD stage III - 4. Pneumonia - community acquired - probable bacterial - c 5. constipation. - 6. Chronic subdural hematoma from multiple falls prior to admission - 7. Suicide attempt - impulsive behavior. COMPLICATIONS/CHIEF COMPLAINT: Acute Sinusitis;Hyperglycemia;Si. 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 Patient states today, neighbor (Alka) knocked on door, he answered it, went into the kitchen for "something" and suddenly lost vision. States he became distraught at the idea of never seeing again, groped around kitchen for a knife and attempted to stab himself in abdomen 3 times. He states "the knife just kept bouncing off my skin and wouldn't go in - then I thought angels were pulling my hands away and taking away knife - but later vision coming back and I saw it was Alka". He states his brother Yanick came by and told him he loved him and didn't want him to . the vision is now cloudy/blurry. Patient was brought to ED and found to have elevated WBC and blood sugars on 10/15/18. He was treated with insulin, IVF. He was seen October 11 for GARZON and sinusitis and placed on augmentin. He states over past week he has been dizzy and fell a few times hitting right elbow and shins but no LOC. Patient is being transferred from Mental health unit to medical floor.On admission exam, patient had loss of left eye peripheral vision. HOSPITAL COURSE: patient admitted , placed on rocephin and azithomycin with improvement to leukocytosis. CXR consistent with pneumonia. blood cultures/sputum culture negative. CT head showed chronic subdural hematoma (present prior to admission). He initially had complete loss of vision left eye and then within 48 hours, became bilaterally blurry with loss of left peripheral vision. prior to discharge, he had episodes of clear vision and blurry vision. the peripheral vision loss resolved and patient was able to identify finger wave in all bilateral peripheral farris. There was no signs of CVA or vasculitis (negative ESR). His carotid US showed less than 50% stenosis bilaterally. His LLQ abdomen mass was due to fecal burden, constipation and resolved with Colace/miralax. he will need opthomology evaluation as outpatient as it is unclear if vision loss /change was due to DM or cataract or something more sinister. Patient seen by psychiatry and deemed not a threat to self or others. He is being discharged in stable and improved condition. DISCHARGE MEDICATIONS: Please see below. ALLERGIES: Please see below. PHYSICAL EXAMINATION ON DISCHARGE: VITAL SIGNS: Please see below. General: pleasant, NAD AAOx3 HRRR LCTA Ext: no edema LABORATORY DATA: Please see below. IMAGING: CT HEAD verbal report - chronic subdural hematoma x2 - small and over 1 month old; CXR consistent with RLL pneumonia PROGNOSIS:good ACTIVITY:as tolerated DIET: carb consistent regular DISCHARGE PLAN: d/c home DISCHARGE INSTRUCTIONS: 1. follow up with Dr Jovel - ophthomology 10/21/18 at 230pm for dilated eye exam 2. follow up with PCP 11/03/[address] Danielito Benitez DISCHARGE CONDITION: stable TIME SPENT ON DISCHARGE: 30 minutes. Vital Signs/I&Os Vital Signs Date Time Temp Pulse Resp B/P (MAP) Pulse Ox O2 Delivery O2 Flow Rate FiO2 10/20/18 10:00 97.7 85 20 144/65 (91) 100 I&O- Last 24 Hours up to 6 AM 10/20/18 06:00 Intake Total 1500 ml Balance 1500 ml Laboratory Data Labs 24H Laboratory Tests 2 10/19/18 11:31: Bedside Glucose (Misc Panel) 333H 10/19/18 16:30: Bedside Glucose (Misc Panel) 259H 10/19/18 20:27: Bedside Glucose (Misc Panel) 380H 10/20/18 06:16: Bedside Glucose (Misc Panel) 87 Item Value Date Time White Blood Count 11.6 10^3/uL H 10/17/18 1207 White Blood Count 8.2 10^3/uL 10/18/18 0519 Hemoglobin 10.1 g/dl L 10/17/18 1207 Hemoglobin 9.2 g/dl L 10/18/18 0519 Platelet Count 200 10^3/uL 10/17/18 1207 Platelet Count 166 10^3/uL 10/18/18 0519 Sodium Level 140 MEQ/L 10/17/18 1207 Sodium Level 139 MEQ/L 10/18/18 0519 Potassium Level 3.9 MEQ/L 10/17/18 1207 Potassium Level 3.6 MEQ/L 10/18/18 0519 Blood Urea Nitrogen 16 MG/DL 10/18/18 0519 Creatinine 0.87 MG/DL 10/18/18 0519 Blood Urea Nitrogen 21 MG/DL H 10/17/18 1207 Creatinine 0.89 MG/DL 10/17/18 1207 Bedside Glucose (Misc Panel) 87 MG/DL 10/20/18 0616 Bedside Glucose (Misc Panel) 90 MG/DL 10/19/18 0521 Bedside Glucose (Misc Panel) 259 MG/DL H 10/19/18 1630 Bedside Glucose (Misc Panel) 380 MG/DL H 10/19/18 2027 Bedside Glucose (Misc Panel) 333 MG/DL H 10/19/18 1131 FSBS Laboratory Tests Test 10/19/18 11:31 10/19/18 16:30 10/19/18 20:27 10/20/18 06:16 Range/Units Bedside Glucose (Misc Panel) 333 259 380 87 83-110 MG/DL Discharge Medications Scheduled Aspirin (Aspirin EC) 81 Mg Tablet.dr, 81 MG PO DAILY, (Reported) Azithromycin (Azithromycin) 250 Mg Tablet, 250 MG PO DAILY Cephalexin (Cephalexin) 500 Mg Capsule, 500 MG PO Q8H Docusate Sodium (Colace) 100 Mg Capsule, 100 MG PO BID Glimepiride (Glimepiride) 1 Mg Tablet, 1 MG PO DAILY, (Reported) Omeprazole (Omeprazole) 20 Mg Capsule.dr, 20 MG PO DAILY, (Reported) Polyethylene Glycol 3350 (Polyethylene Glycol 3350) 17 Gm Powd.pack, 1 PKT PO DAILY Scheduled PRN Guaifenesin (Mucinex) 600 Mg Tab.er.12h, 600 MG PO BID PRN for COUGH, (Reported) Allergies Coded Allergies: No Known Allergies (Unverified , 10/11/18) MITCHELL ARSHAD DO Oct 20, 2018 11:30
== END 2018-10-20 15:15 | disposition home or self-care (01) | DRG 195 ==
LOC: M MSPAV 22:52
PROVIDERS: ADMIT Family Medicine; ATTEND Family Medicine
DX: J18.9 Pneumonia, unspecified organism (principal); E11.22 Type 2 diabetes mellitus with diabetic chronic kidney disease; N18.3 Chronic kidney disease, stage 3 (moderate); E11.65 Type 2 diabetes mellitus with hyperglycemia; K59.00 Constipation, unspecified; F43.23 Adjustment disorder with mixed anxiety and depressed mood; F70 Mild intellectual disabilities; H91.93 Unspecified hearing loss, bilateral; Z79.84 Long term (current) use of oral hypoglycemic drugs; Z91.5 Personal history of self-harm; Z79.82 Long term (current) use of aspirin; Z79.899 Other long term (current) drug therapy

== ENCOUNTER → 2018-11-10 | Outpatient (REF) | payer MEDICARE, MEDICAID ==
[~2018-11-10] MED LIST changes: +AMIT25TA PO; +AZIT-12 PO; +CEPH500C PO; +COLA100C5 PO; +FLUC100T PO; +ISTA0.5S OP; +PEG1POW PO
[2018-11-10 17:07] LABS: BASO # 0.1 10^3/uL (0.0-0.2); BASO % 0.5 % (0.0-1.0); EOS # 0.2 10^3/uL (0.0-0.50); EOS % 1.6 % (0.0-3.0); HEMATOCRIT 31.9 % (42.0-52.0); HEMOGLOBIN 10.7 g/dl (13.5-17.5); LYMPH # 1.4 10^3/uL (1.5-4.5); LYMPH % 12.4 % (24.0-44.0); MEAN CORPUSCULAR HEMOGLOBIN 29.9 pg (27.0-33.0); MEAN CORPUSCULAR HGB CONC 33.5 g/dl (32.0-36.5); MEAN CORPUSCULAR VOLUME 89.1 fl (80.0-96.0); MONO # 0.6 10^3/uL (0.0-0.8); MONO % 5.7 % (0.0-5.0); NEUTROPHILS # 8.7 10^3/uL (1.8-7.7); NEUTROPHILS % 78.4 % (36.0-66.0); PLATELET COUNT, AUTOMATED 126 10^3/uL (150-450); RED BLOOD COUNT 3.58 10^6/uL (4.30-6.10); WHITE BLOOD COUNT 11.1 10^3/uL (4.0-10.0)
[2018-11-10 17:16] LABS: HEMATOCRIT 31.9 % (42.0-52.0)
[2018-11-10 18:08] LABS: ALBUMIN 4.1 GM/DL (3.2-5.2); ALT/SGPT 32 U/L (12-78); BILIRUBIN,TOTAL 2.6 MG/DL (0.2-1.0); BLOOD UREA NITROGEN 28 MG/DL (7-18); CALCIUM LEVEL 8.4 MG/DL (8.8-10.2); CARBON DIOXIDE LEVEL 28 MEQ/L (21-32); CHLORIDE LEVEL 99 MEQ/L (98-107); CREATININE FOR GFR 1.21 MG/DL (0.70-1.30); FERRITIN 233 NG/ML (26-388); FREE T4 1.01 NG/DL (0.76-1.46); GLOMERULAR FILTRATION RATE > 60.0 (>42); GLUCOSE, FASTING 460 MG/DL (70-100); IRON (FE) 93 UG/DL (65-175); POTASSIUM SERUM 4.5 MEQ/L (3.5-5.1); PROSTATIC SPECIFIC AG MONITOR 0.22 NG/ML (< 4.00); PTH INTACT 56.5 PG/ML (18.5-88.0); SODIUM LEVEL 136 MEQ/L (136-145); TOTAL 25(OH) VITAMIN D 32.9 NG/ML (30.0-100.0); TOTAL IRON BINDING CAPACITY 245 UG/DL (250-450); VITAMIN B12 LEVEL 1393 PG/ML (247-911)
== END ==
LOC: M SFHCPLAZ 12:59
PROVIDERS: ATTEND Family Medicine
DX: E11.8 Type 2 diabetes mellitus with unspecified complications (principal); E83.110 Hereditary hemochromatosis; C61 Malignant neoplasm of prostate; N18.3 Chronic kidney disease, stage 3 (moderate)

== ENCOUNTER → 2018-11-18 | Outpatient (CLI) | payer MEDICARE, MEDICAID ==
[~2018-11-18] MED LIST changes: -AMIT25TA PO; -FLUC100T PO; +GASTROGRAFIN SOLUTION 30ML (Q9963) As Ordered ONE; +ISOVUE-370 76% 100ML VIAL (Q9967) As Ordered ONE; -ISTA0.5S OP
--- NOTE | 2018-11-18 19:43 | REP ---
CT abdomen and pelvis with IV and oral contrast: History: Weight loss. Comparison CT study October 2005. CT contrast dose: 100 ml of intravenous Isovue 370 is administered. Preliminary digital net making supervisor radiograph demonstrates splenomegaly. Spleen measures 14.9 cm in greatest transverse dimension. It is homogeneous on pre and postcontrast images. The spleen is larger, although only slightly than it was in 2006. Gallbladder is surgically absent. No focal hepatic lesion is seen. No adrenal lesion is observed. There is mild linear fibrosis in the lower lobes bilaterally in the lung farris. This is unchanged. There is a zone of plate-like atelectasis however which is a new finding in the right middle lobe. There are air bronchograms associated with this. The lung bases are otherwise clear. No pancreatic abnormality is noted. There is no evidence of upper abdominal adenopathy. Small and large bowel loops are normal in the upper abdomen. There is moderate colonic stool throughout. There is a simple cyst anteriorly in the lower pole of the right kidney which measures 2.0 cm in greatest diameter. In addition, however, there is a very small enhancing right lower pole renal mass measuring 1.6 cm in greatest diameter. This merits further evaluation. It may well be an early renal cell carcinoma. Left kidney shows no evidence of mass or cyst. There is mild fullness of the intrarenal collecting system bilaterally. No ureteral obstructive lesion is seen. There is bilateral vas deferens calcification. This may correlate with diabetes. Seminal vesicles and prostate are unremarkable. Urinary bladder appears intact. There are small bilateral inguinal hernias transmitting abdominal fat. Small bowel loops extend into the upper end of the inguinal canal bilaterally without evidence of obstruction. No other abdominal wall defect is observed. Bone window settings show degenerative disc disease and facet changes in the lumbar spine. No bony destructive lesion is seen. There is a bone island in the right femoral neck. Impression: 1. Moderate splenomegaly slightly increased from the 2006 prior study. 2. There is a zone of discoid atelectasis in the right middle lobe with air bronchograms, etiology uncertain noted incidentally. Consider chest CT. 3. Small bilateral inguinal hernias. 4. Status post cholecystectomy. 5. Moderate colonic stool. Degenerative disc and facet changes in the lumbar spine. 6. 1.6 cm enhancing mass in the lower pole of the right kidney, rule out early renal cell carcinoma. Urology evaluation suggested. Electronically Signed by Melo Briseno MD 11/18/2018 08:12 P
== END ==
LOC: M RAD 13:38
PROVIDERS: ATTEND Family Medicine
DX: R63.4 Abnormal weight loss (principal); Z90.49 Acquired absence of other specified parts of digestive tract; N28.1 Cyst of kidney, acquired; N28.89 Other specified disorders of kidney and ureter; R16.1 Splenomegaly, not elsewhere classified; J98.11 Atelectasis; K40.20 Bilateral inguinal hernia, without obstruction or gangrene, not specified as recurrent; M51.36 Other intervertebral disc degeneration, lumbar region
CPT/HCPCS: 74178; Q9963; Q9967

== ENCOUNTER 2018-12-05 11:16 | Emergency (ER) | payer MEDICARE, MEDICAID ==
[~2018-12-05] VITALS: Ht 170.2 cm; Wt 58.8 kg
[~2018-12-05 11:16] MED LIST changes: -GASTROGRAFIN SOLUTION 30ML (Q9963) As Ordered ONE; -ISOVUE-370 76% 100ML VIAL (Q9967) As Ordered ONE
[2018-12-05] MEDS ORDERED: FLUC100T PO (11:35)
[2018-12-05] MEDS ORDERED: COLA100C5 PO (11:35)
[2018-12-05] MEDS ORDERED: AMIT25TA PO (11:35)
[2018-12-05] MEDS ORDERED: ISTA0.5S OP (11:35)
--- NOTE | 2018-12-05 12:06 | REP ---
CHEST, SINGLE VIEW: There is no evidence of acute infiltrate. No pleural effusion is seen. The heart is normal in size. The mediastinal silhouette is unremarkable. The visualized osseous structures are intact. IMPRESSION: No acute pulmonary disease. Electronically Signed by Godfrey Rice MD 12/09/2018 05:29 P
[2018-12-05 12:07] LABS: BASO # 0.1 10^3/uL (0.0-0.2); BASO % 0.8 % (0.0-1.0); EOS # 0.1 10^3/uL (0.0-0.50); EOS % 1.7 % (0.0-3.0); HEMATOCRIT 28.2 % (42.0-52.0); HEMOGLOBIN 10.2 g/dl (13.5-17.5); LYMPH # 1.2 10^3/uL (1.5-4.5); LYMPH % 15.2 % (24.0-44.0); MEAN CORPUSCULAR HEMOGLOBIN 31.4 pg (27.0-33.0); MEAN CORPUSCULAR HGB CONC 36.2 g/dl (32.0-36.5); MEAN CORPUSCULAR VOLUME 86.8 fl (80.0-96.0); MONO # 0.5 10^3/uL (0.0-0.8); MONO % 6.1 % (0.0-5.0); NEUTROPHILS # 5.9 10^3/uL (1.8-7.7); NEUTROPHILS % 74.8 % (36.0-66.0); PLATELET COUNT, AUTOMATED 127 10^3/uL (150-450); RED BLOOD COUNT 3.25 10^6/uL (4.30-6.10); WHITE BLOOD COUNT 7.9 10^3/uL (4.0-10.0)
[2018-12-05] MEDS ORDERED: GI COCKTAIL 50ML BTL(HYOSCYAMINE/MAALOX/LIDOCAINE VISCOUS)(1:3:1) PO ONE (12:15)
[2018-12-05 12:31] LABS: BLOOD UREA NITROGEN 22 MG/DL (7-18); CALCIUM LEVEL 8.5 MG/DL (8.8-10.2); CARBON DIOXIDE LEVEL 25 MEQ/L (21-32); CHLORIDE LEVEL 100 MEQ/L (98-107); CK-MB VALUE MASS 2.7 NG/ML (<3.6); CPK CREATINE PHOSPHOKINASE 49 U/L (39-308); CREATININE FOR GFR 1.22 MG/DL (0.70-1.30); GLOMERULAR FILTRATION RATE > 60.0 (>42); GLUCOSE, FASTING 373 MG/DL (70-100); MB/CK RELATIVE INDEX 5.51 (< OR =4); SODIUM LEVEL 134 MEQ/L (136-145); TROPONIN I < 0.02 NG/ML (< 0.10)
[2018-12-05 12:57] LABS: ALBUMIN 4.2 GM/DL (3.2-5.2); ALT/SGPT 26 U/L (12-78); BILIRUBIN,DIRECT 0.4 MG/DL (0.0-0.2); BILIRUBIN,TOTAL 4.5 MG/DL (0.2-1.0); TOTAL PROTEIN 6.4 GM/DL (6.4-8.2)
[2018-12-05 13:46] VITALS: BP 156/60
--- NOTE | 2018-12-06 09:31 | ECGEPIP ---
[facility] - ED Test Date: 2018-12-05 Pat Name: ARCHANA HERNÁNDEZ Department: Room: - Gender: Male Radiation Oncology Manager: CT : 1940 Requested By: Jazlyn Dodd Order Number: [id number] Reading MD: Esme Alvarez Measurements Intervals [place] Rate: 74 P: 80 [place]: 198 QRS: -69 QRSD: 135 T: 66 QT: 401 QTc: 445 Interpretive Statements SINUS RHYTHM WITH FREQUENT SUPRAVENTRICULAR PREMATURE COMPLEXES RIGHT BUNDLE BRANCH BLOCK LEFT ANTERIOR FASCICULAR BLOCK POSSIBLE SEPTAL MYOCARDIAL INFARCTION, PROBABLY OLD DECREASED RATE 10/15/18 Electronically Signed on 12-06-2018 9:31:12 EDT by Esme Alvarez
== END 2018-12-05 14:15 | disposition home or self-care (01) ==
LOC: M ED 11:16
DX: K21.9 Gastro-esophageal reflux disease without esophagitis (principal); F79 Unspecified intellectual disabilities; Z79.899 Other long term (current) drug therapy; Z79.82 Long term (current) use of aspirin

== ENCOUNTER → 2019-03-19 | Outpatient (REF) | payer MEDICARE, MEDICAID ==
[~2019-03-19] MED LIST changes: +AMIT25TA PO; +ASPI-531 PO; +FLUC100T PO; -GLIM1TAB PO; +GLIM1TAB2 PO; +ISTA0.5S OP; -[UNRECOGNIZED DRUG - CODE] PO
[2019-03-19 11:09] LABS: BASO # 0.1 10^3/uL (0.0-0.2); BASO % 0.9 % (0.0-1.0); EOS # 0.2 10^3/uL (0.0-0.5); EOS % 3.3 % (0.0-3.0); HEMATOCRIT 33.8 % (42.0-52.0); HEMOGLOBIN 11.2 g/dl (13.5-17.5); LYMPH # 1.4 10^3/uL (1.5-5.0); LYMPH % 21.5 % (24.0-44.0); MEAN CORPUSCULAR HEMOGLOBIN 30.4 pg (27.0-33.0); MEAN CORPUSCULAR HGB CONC 33.1 g/dl (32.0-36.5); MEAN CORPUSCULAR VOLUME 91.6 fl (80.0-96.0); MONO # 0.4 10^3/uL (0.0-0.8); MONO % 6.1 % (0.0-5.0); NEUTROPHILS # 4.4 10^3/uL (1.5-8.5); NEUTROPHILS % 67.1 % (36.0-66.0); PLATELET COUNT, AUTOMATED 133 10^3/uL (150-450); RED BLOOD COUNT 3.69 10^6/uL (4.30-6.10); WHITE BLOOD COUNT 6.6 10^3/uL (4.0-10.0)
[2019-03-19 11:18] LABS: INR 1.14; PROTHROMBIN TIME 14.3 SECONDS (11.8-14.0)
[2019-03-19 11:35] LABS: ALBUMIN 4.5 GM/DL (3.2-5.2); ALT/SGPT 37 U/L (12-78); BILIRUBIN,TOTAL 1.9 MG/DL (0.2-1.0); BLOOD UREA NITROGEN 26 MG/DL (7-18); C REACTIVE PROTEIN QUANTITATIV < 0.30 MG/DL (0.00-0.30); CALCIUM LEVEL 8.9 MG/DL (8.8-10.2); CARBON DIOXIDE LEVEL 27 MEQ/L (21-32); CHLORIDE LEVEL 109 MEQ/L (98-107); CHOLESTEROL LEVEL 130 MG/DL (<200); CPK CREATINE PHOSPHOKINASE 45 U/L (39-308); CREATININE FOR GFR 1.06 MG/DL (0.70-1.30); GLOMERULAR FILTRATION RATE > 60.0 (>42); GLUCOSE, FASTING 202 MG/DL (70-100); HDL CHOLESTEROL 50 MG/DL (>40); LDL CHOLESTEROL 54 MG/DL (<100); NON-HDL-C 80 MG/DL; SODIUM LEVEL 142 MEQ/L (136-145); TOTAL PROTEIN 6.8 GM/DL (6.4-8.2); TRIGLYCERIDES LEVEL 129 MG/DL (<150)
[2019-03-19 11:42] LABS: CREATININE, URINE 90.2 MG/DL; MALB URINE SIEMENS 45.4 MG/L; MAU/CREAT RATIO 50.3 MCG/MG (0.0-30.0)
[2019-03-19 12:13] LABS: APPEARANCE, URINE CLEAR (CLEAR); BACTERIA, URINE AUTO NEGATIVE (NEGATIVE); BILIRUBIN, URINE AUTO NEGATIVE (NEGATIVE); BLOOD, URINE BLOOD NEGATIVE (NEGATIVE); COLOR, URINE YELLOW (YELLOW); GLUCOSE, URINE (UA) AUTO 1+ mg/dL (NEGATIVE); KETONE, URINE AUTO NEGATIVE (NEGATIVE); LEUKOCYTE ESTERASE, URINE AUTO NEGATIVE (NEGATIVE); MUCUS, URINE SMALL (NEGATIVE); NITRITE, URINE AUTO NEGATIVE (NEGATIVE); PROTEIN, URINE AUTO NEGATIVE (NEGATIVE); RBC, URINE AUTO 1 /HPF (0-3); SPECIFIC GRAVITY URINE AUTO 1.018 (1.002-1.035); SQUAMOUS EPITHELIAL CELL UR AU 0 /HPF (0-6); UROBILINOGEN, URINE AUTO 0.2 mg/dL (0.0-2.0); WBC, URINE AUTO 0 /HPF (0-3)
[2019-03-23 13:06] LABS: ALBUMIN 5.15 GM/DL (3.29-5.55); ALBUMIN % 75.8 % (55.8-66.1); ALPHA-1-GLOBULINS 0.27 GM/DL (0.17-0.41); ALPHA-2-GLOBULINS % 6.2 % (7.1-11.8); BETA-1-GLOBULINS % 5.5 % (4.7-7.2); BETA-2-GLOBULINS % 2.5 % (3.2-6.5)
[2019-03-23 13:07] LABS: ALPHA-2-GLOBULINS 0.42 GM/DL (0.42-0.99); BETA-1-GLOBULINS 0.37 GM/DL (0.28-0.60); BETA-2-GLOBULINS 0.17 GM/DL (0.19-0.55); GAMMA GLOBULINS 0.41 GM/DL (0.65-1.58)
== END ==
LOC: M SFHCPLAZ 09:16
PROVIDERS: ATTEND Family Medicine
DX: N18.3 Chronic kidney disease, stage 3 (moderate) (principal); E78.2 Mixed hyperlipidemia; D58.0 Hereditary spherocytosis; E83.110 Hereditary hemochromatosis; E11.8 Type 2 diabetes mellitus with unspecified complications; Z79.899 Other long term (current) drug therapy

== ENCOUNTER → 2019-03-20 | Outpatient (CLI) | payer MEDICARE, MEDICAID ==
[~2019-03-20] MED LIST changes: +ISOVUE-370 76% 100ML VIAL (Q9967) As Ordered ONE
--- NOTE | 2019-03-20 17:02 | REP ---
CT chest with IV contrast: History: Weight loss. CT contrast dose: 75 mL of intravenous Isovue 370. Comparison CT study of the chest is from August 28, 2006. Comparison chest x-ray is from December 05, 2018. CT findings: There has been no change in the size or appearance of the 8 mm noncalcified pulmonary nodule seen previously in the left lower lobe in the interval since the [address] study. There is some dependent fibroatelectatic change in the lower lobes bilaterally. There is no other significant pulmonary nodule or pulmonary mass lesion. No infiltrate is appreciated. There is no evidence of pleural or pericardial effusion. There is heavy vascular calcification along the distribution of the left coronary and to a lesser extent right coronary artery. The gallbladder is surgically absent. The spleen is enlarged as before measuring up to 15.4 cm in greatest transverse dimension. No focal splenic or hepatic lesion is seen. No hilar or mediastinal mass or adenopathy is observed. No bony destructive lesion is seen. Impression: No active cardiopulmonary disease. Stable 8 mm nodule left lower lobe. Fairly extensive vascular calcification. Stable splenomegaly. Electronically Signed by Melo Briseno MD 03/20/2019 05:21 P
== END ==
LOC: M RAD 14:06
PROVIDERS: ATTEND Family Medicine
DX: R63.4 Abnormal weight loss (principal)
CPT/HCPCS: 71260; Q9967

== ENCOUNTER → 2019-05-12 | Outpatient (REF) | payer MEDICARE, MEDICAID ==
[~2019-05-12] MED LIST changes: -GLIM1TAB2 PO; +GLIM1TAB4 PO; -ISOVUE-370 76% 100ML VIAL (Q9967) As Ordered ONE
[2019-05-12 13:34] LABS: ALBUMIN 4.5 GM/DL (3.2-5.2); ALT/SGPT 77 U/L (12-78); BILIRUBIN,TOTAL 2.3 MG/DL (0.2-1.0); BLOOD UREA NITROGEN 18 MG/DL (7-18); CALCIUM LEVEL 8.8 MG/DL (8.8-10.2); CARBON DIOXIDE LEVEL 27 MEQ/L (21-32); CHLORIDE LEVEL 105 MEQ/L (98-107); CREATININE FOR GFR 1.22 MG/DL (0.70-1.30); FERRITIN 346 NG/ML (26-388); GLOMERULAR FILTRATION RATE > 60.0 (>42); GLUCOSE, FASTING 260 MG/DL (70-100); IRON (FE) 107 UG/DL (65-175); PERCENT SATURATION 40.2 % (19.7-50.0); POTASSIUM SERUM 4.4 MEQ/L (3.5-5.1); SODIUM LEVEL 139 MEQ/L (136-145); TOTAL IRON BINDING CAPACITY 266 UG/DL (250-450); TOTAL PROTEIN 6.7 GM/DL (6.4-8.2)
[2019-05-12 13:50] LABS: TOTAL PROTEIN,RANDOM URINE 28.4 MG/DL (0.0-12.0)
[2019-05-19 00:06] LABS: C-PEPTIDE 1.9 ng/mL (1.1-4.4); FREE LAMBDA LIGHT CHAINS SERUM 12.5 mg/L (5.7-26.3); FREE LAMBDA LIGHT CHAINS URINE 8.9 mg/L (0.24-6.66); KAPPA/LAMBDA RATIO SERUM 1.12 (0.26-1.65); KAPPA/LAMBDA RATIO URINE 12.58 (2.04-10.37)
== END ==
LOC: M SFHCPLAZ 10:18
PROVIDERS: ATTEND Family Medicine
DX: N18.3 Chronic kidney disease, stage 3 (moderate) (principal); E83.110 Hereditary hemochromatosis; E11.8 Type 2 diabetes mellitus with unspecified complications
CPT/HCPCS: 36415; 80053; 82105; 82728; 82985; 83550; 83883; 84681; 86335; 90682; G0008

== ENCOUNTER → 2019-06-17 | Outpatient (CLI) | payer MEDICARE, MEDICAID ==
[2019-06-17 13:05] LABS: CREATININE FOR GFR 1.24 MG/DL (0.70-1.30); POTASSIUM SERUM 4.4 MEQ/L (3.5-5.1)
== END ==
LOC: M PLALAB 10:46
PROVIDERS: ATTEND Nurse Practitioner Women's Health
DX: N28.89 Other specified disorders of kidney and ureter (principal)
CPT/HCPCS: 36415; 80048; G0463

== ENCOUNTER → 2019-07-14 | Outpatient (CLI) | payer MEDICARE, MEDICAID ==
[~2019-07-14] MED LIST changes: +ISOVUE-370 76% 100ML VIAL (Q9967) As Ordered ONE
--- NOTE | 2019-07-14 11:30 | REPVR ---
PROCEDURE INFORMATION: Exam: CT Abdomen And Pelvis Without And With Contrast; Kidneys Exam date and time: 07/14/2019 10:57 AM Age: 78 years old Clinical indication: Abnormal findings; Mass, lump, or swelling; Kidney, right; Additional info: Renal mass on right side TECHNIQUE: Imaging protocol: Computed tomography of the abdomen and pelvis without and with intravenous contrast. Exam focused on the kidneys. Radiation optimization: All CT scans at this facility use at least one of these dose optimization techniques: automated exposure control; mA and/or kV adjustment per patient size (includes targeted exams where dose is matched to clinical indication); or iterative reconstruction. Contrast material: ISO 370; Contrast volume: 100 ml; Contrast route: IV; COMPARISON: CT ABD PELVIS W/O FOL BY WIT 11/18/2018 3:58 PM The prior report is not available for correlation at the time of interpretation. FINDINGS: Lungs: Poorly defined 5 mm nodular density in the lingula (series 201: Image 1). For patients at low risk (minimal or absent history of smoking and of other known risk factors), no routine follow-up is indicated. For patients at high risk (history of smoking or of other known risk factors), consider optional CT Chest at 12 months. MacMahostanislav H, Fleischner Society, 2017. Trace dependent airspace disease. Coronary artery calcification. Liver: No focal hepatic mass. Gallbladder and bile ducts: Status post cholecystectomy with mild biliary ductal dilatation. Pancreas: No pancreatic mass or ductal dilatation. Spleen: Enlarged spleen measuring 14.7 cm in length. Adrenals: Unremarkable adrenals. Kidneys and ureters: Cortical and pararenal renal cysts, including a stable 2.0 cm cyst in the anterior right kidney. Stable 1.5 cm hypodense solid lesion in the lower pole of the right kidney, consistent with neoplasm. Biopsy is recommended for definitive tissue diagnosis. Stomach and bowel: Gastric wall thickening. Copious stool in the dilated colon, in a pattern of constipation. Diverticula, without pericolonic inflammation. Appendix: Appendix not visualized. Intraperitoneal space: No free fluid. Lymph nodes: Subcentimeter lymph nodes. Vasculature: Vascular calcification. Normal caliber of the abdominal aorta. Bladder: Bladder dilatation. Reproductive: Vas deferens calcification. Bones/joints: Bone islands, including an 11 mm bone island in the proximal right femur. Degenerative change, disc bulging, vacuum disc, and lumbar levoscoliosis. Soft tissues: Bowel containing bilateral inguinal hernias, without high-grade obstruction. IMPRESSION: 1. Stable 1.5 cm hypodense solid lesion in the lower pole of the right kidney, consistent with neoplasm. Biopsy is recommended for definitive tissue diagnosis. 2. Gastric wall thickening. 3. Additional findings as described above. Electronically signed by: Mello Jonas On 07/14/2019 11:29:57 AM
== END ==
LOC: M RAD 10:17
PROVIDERS: ATTEND Nurse Practitioner Women's Health
DX: N28.89 Other specified disorders of kidney and ureter (principal)
CPT/HCPCS: 74178; Q9967

== ENCOUNTER → 2019-07-23 | Outpatient (REF) | payer MEDICARE, MEDICAID ==
[~2019-07-23] MED LIST changes: -ISOVUE-370 76% 100ML VIAL (Q9967) As Ordered ONE
[2019-07-23 13:46] LABS: ALBUMIN 4.3 GM/DL (3.2-5.2); ALT/SGPT 38 U/L (12-78); BILIRUBIN,TOTAL 2.3 MG/DL (0.2-1.0); BLOOD UREA NITROGEN 28 MG/DL (7-18); CALCIUM LEVEL 9.4 MG/DL (8.8-10.2); CARBON DIOXIDE LEVEL 32 MEQ/L (21-32); CHLORIDE LEVEL 102 MEQ/L (98-107); CREATININE FOR GFR 1.18 MG/DL (0.70-1.30); GLOMERULAR FILTRATION RATE > 60.0 (>42); GLUCOSE, FASTING 362 MG/DL (70-100); POTASSIUM SERUM 4.3 MEQ/L (3.5-5.1); SODIUM LEVEL 138 MEQ/L (136-145); TOTAL PROTEIN 6.4 GM/DL (6.4-8.2)
[2019-07-23 13:55] LABS: PTH INTACT 27.6 PG/ML (18.5-88.0); TOTAL 25(OH) VITAMIN D 37.7 NG/ML (30.0-100.0)
[2019-07-23 13:56] LABS: BASO # 0.1 10^3/uL (0.0-0.2); BASO % 0.9 % (0.0-1.0); EOS # 0.2 10^3/uL (0.0-0.5); EOS % 2.5 % (0.0-3.0); HEMATOCRIT 33.6 % (42.0-52.0); HEMOGLOBIN 11.3 g/dl (13.5-17.5); LYMPH # 1.3 10^3/uL (1.5-5.0); LYMPH % 17.8 % (24.0-44.0); MEAN CORPUSCULAR HEMOGLOBIN 30.5 pg (27.0-33.0); MEAN CORPUSCULAR HGB CONC 33.6 g/dl (32.0-36.5); MEAN CORPUSCULAR VOLUME 90.6 fl (80.0-96.0); MONO # 0.5 10^3/uL (0.0-0.8); MONO % 7.2 % (0.0-5.0); NEUTROPHILS # 5.2 10^3/uL (1.5-8.5); NEUTROPHILS % 69.9 % (36.0-66.0); PLATELET COUNT, AUTOMATED 122 10^3/uL (150-450); RED BLOOD COUNT 3.71 10^6/uL (4.30-6.10); WHITE BLOOD COUNT 7.5 10^3/uL (4.0-10.0)
== END ==
LOC: M SFHCPLAZ 10:10
PROVIDERS: ATTEND Family Medicine
DX: D69.6 Thrombocytopenia, unspecified (principal); E11.8 Type 2 diabetes mellitus with unspecified complications; C61 Malignant neoplasm of prostate; E55.9 Vitamin D deficiency, unspecified; Z23 Encounter for immunization
CPT/HCPCS: 36415; 80053; 82306; 82985; 83970; 85025; 90472; 90670; 90734; G0009; G0103; G0463

== ENCOUNTER → 2019-10-20 | Outpatient (REF) | payer MEDICARE, MEDICAID ==
[~2019-10-20] MED LIST changes: -AMIT25TA PO; +AMIT25TA17 PO
[2019-10-20 14:13] LABS: BASO # 0.1 10^3/uL (0.0-0.2); EOS # 0.2 10^3/uL (0.0-0.5); EOS % 1.7 % (0.0-3.0); HEMATOCRIT 31.8 % (42.0-52.0); HEMOGLOBIN 10.8 g/dl (13.5-17.5); LYMPH # 1.7 10^3/uL (1.5-5.0); LYMPH % 18.5 % (24.0-44.0); MEAN CORPUSCULAR HEMOGLOBIN 29.9 pg (27.0-33.0); MEAN CORPUSCULAR VOLUME 88.1 fl (80.0-96.0); MONO # 0.6 10^3/uL (0.0-0.8); MONO % 6.3 % (0.0-5.0); NEUTROPHILS # 6.6 10^3/uL (1.5-8.5); NEUTROPHILS % 71.1 % (36.0-66.0); PLATELET COUNT, AUTOMATED 120 10^3/uL (150-450); RED BLOOD COUNT 3.61 10^6/uL (4.30-6.10); WHITE BLOOD COUNT 9.3 10^3/uL (4.0-10.0)
[2019-10-20 14:56] LABS: ALBUMIN 4.6 GM/DL (3.2-5.2); ALT/SGPT 71 U/L (12-78); BILIRUBIN,TOTAL 3.1 MG/DL (0.2-1.0); BLOOD UREA NITROGEN 26 MG/DL (7-18); C REACTIVE PROTEIN QUANTITATIV < 0.30 MG/DL (0.00-0.30); CALCIUM LEVEL 9.2 MG/DL (8.8-10.2); CARBON DIOXIDE LEVEL 31 MEQ/L (21-32); CHLORIDE LEVEL 102 MEQ/L (98-107); CHOLESTEROL LEVEL 127 MG/DL (<200); CHOLESTEROL RISK RATIO 3.023 (<5); CPK CREATINE PHOSPHOKINASE 47 U/L (39-308); CREATININE FOR GFR 1.31 MG/DL (0.70-1.30); GLOMERULAR FILTRATION RATE 56.2 (>42); GLUCOSE, FASTING 336 MG/DL (70-100); HDL CHOLESTEROL 42 MG/DL (>40); LDL CHOLESTEROL 53 MG/DL (<100); NON-HDL-C 85 MG/DL; POTASSIUM SERUM 4.5 MEQ/L (3.5-5.1); SODIUM LEVEL 138 MEQ/L (136-145); TOTAL PROTEIN 6.8 GM/DL (6.4-8.2); TRIGLYCERIDES LEVEL 159 MG/DL (<150)
[2019-10-20 15:07] LABS: HEMOGLOBIN A1c 5.2 %
== END ==
LOC: M SFHCPLAZ 11:50
PROVIDERS: ATTEND Family Medicine
DX: D69.6 Thrombocytopenia, unspecified (principal); E11.8 Type 2 diabetes mellitus with unspecified complications; D58.0 Hereditary spherocytosis; E83.110 Hereditary hemochromatosis
CPT/HCPCS: 36415; 80053; 80061; 82105; 82140; 82550; 83036; 85025; 86140; G0463

== ENCOUNTER → 2020-01-21 | Outpatient (CLI) | payer MEDICARE, MEDICAID ==
[~2020-01-21] MED LIST changes: +AMIT25TA PO; -AMIT25TA17 PO
[2020-01-21 14:10] LABS: HEMATOCRIT 31.1 % (42.0-52.0); HEMOGLOBIN 10.1 g/dl (13.5-17.5); MEAN CORPUSCULAR HEMOGLOBIN 29.2 pg (27.0-33.0); MEAN CORPUSCULAR HGB CONC 32.5 g/dl (32.0-36.5); MEAN CORPUSCULAR VOLUME 89.9 fl (80.0-96.0); PLATELET COUNT, AUTOMATED 120 10^3/uL (150-450); RED BLOOD COUNT 3.46 10^6/uL (4.30-6.10); WHITE BLOOD COUNT 8.1 10^3/uL (4.0-10.0)
[2020-01-21 14:46] LABS: ALBUMIN 4.3 GM/DL (3.2-5.2); ALT/SGPT 38 U/L (12-78); BILIRUBIN,TOTAL 2.7 MG/DL (0.2-1.0); BLOOD UREA NITROGEN 26 MG/DL (7-18); CALCIUM LEVEL 9.5 MG/DL (8.8-10.2); CARBON DIOXIDE LEVEL 30 MEQ/L (21-32); CHLORIDE LEVEL 109 MEQ/L (98-107); CREATININE FOR GFR 1.04 MG/DL (0.70-1.30); FERRITIN 244 NG/ML (26-388); GLOMERULAR FILTRATION RATE > 60.0 (>42); GLUCOSE, FASTING 86 MG/DL (70-100); IRON (FE) 78 UG/DL (65-175); NT-PRO BNP 566 PG/ML (<450); PERCENT SATURATION 28.6 % (19.7-50.0); POTASSIUM SERUM 4.5 MEQ/L (3.5-5.1); SODIUM LEVEL 143 MEQ/L (136-145); TOTAL IRON BINDING CAPACITY 273 UG/DL (250-450); TOTAL PROTEIN 6.1 GM/DL (6.4-8.2)
== END ==
LOC: M PLALAB 09:52
PROVIDERS: ATTEND Family Medicine
DX: E11.8 Type 2 diabetes mellitus with unspecified complications (principal); I12.0 Hypertensive chronic kidney disease with stage 5 chronic kidney disease or end stage renal disease; N18.5 Chronic kidney disease, stage 5

== ENCOUNTER → 2020-02-01 | Outpatient (CLI) | payer MEDICARE, MEDICAID ==
--- NOTE | 2020-02-09 16:56 | REP ---
RENAL ULTRASOUND HISTORY: Renal mass. TECHNIQUE: Real-time sonographic evaluation of the kidneys is performed. FINDINGS: The kidneys are normal in size and echotexture, right kidney measuring 9.4 x 5.4 x 4.6 cm and left kidney 9.0 x 4.1 x 4.0 cm. There is no hydronephrosis bilaterally. There is anechoic cyst in the lower pole of the right kidney measuring 1.7 cm in diameter. No other cystic or solid mass is seen bilaterally. Urinary bladder is very mildly distended and is not well evaluated. IMPRESSION: Simple anechoic benign cyst lower right kidney 1.7 cm in diameter. No other cystic or solid nodule seen bilaterally. MTDD
== END ==
LOC: M RAD 13:36
PROVIDERS: ATTEND Nurse Practitioner Women's Health
DX: N28.1 Cyst of kidney, acquired (principal)

== ENCOUNTER → 2020-02-17 | Outpatient (CLI) | payer MEDICARE, MEDICAID ==
--- NOTE | 2020-02-19 16:59 | ECHO ---
DATE OF PROCEDURE: 02/17/2020 Age: 79 Gender: Male REFERRING PROVIDER: Emmanuel Esteves MD. PATIENT LOCATION: Outpatient. REASON FOR STUDY: Diastolic heart failure. 2D MEASUREMENTS: IVS 1.1 cm LV 4.3 cm LVPW 1.0 cm LA 4.0 cm Aorta 2.9 cm IVC 1.1 cm DOPPLER MEASUREMENT Peak velocity across the aortic valve 1.6 m/s Peak gradient across the aortic valve 10 mmHg Mean gradient across the aortic valve 5 mmHg Mitral E 1.2 Mitral A 1.6 with a ratio of 0.7 2D COMMENTS: 1. Normal left ventricular size, wall thickness, and normal global left ventricular systolic function. The estimated left ventricular systolic ejection fraction is 60% to 65%. 2. Borderline enlarged left atrium. Normal right atrium and right ventricle. 3. The atrial septum appeared to be normal without evidence of defect or shunt. 4. Normal aortic root. 5. No pericardial effusion seen. No evidence of cardiac tamponade. Doppler with no significant valvular abnormalities detected, but trace mitral regurgitation and trace tricuspid regurgitation. IMPRESSION: 1. Normal global left ventricular systolic function. There are some features of grade 1 left ventricular diastolic dysfunction manifested by abnormal relaxation. 2. Aortic valve sclerosis without stenosis or aortic regurgitation. 3. Mitral annulus calcification with trace mitral regurgitation and borderline enlarged left atrium. 4. Trace tricuspid regurgitation. MTDD
== END ==
LOC: M CARPUL 09:17
PROVIDERS: ATTEND Family Medicine
DX: I50.30 Unspecified diastolic (congestive) heart failure (principal)